=== PATIENT | male | born 1945 | race Caucasian/White ===

== ENCOUNTER 2018-10-04 09:17 | Inpatient (IN) | payer MEDICARE, OTHER, SELFPAY ==
[2018-10-04] VITALS (18 sets, daily range): BP systolic 142–231; BP diastolic 62–99; PULSE 57–89; RESP 13–21; TEMP 36.4–37.1; O2SAT 93–97; BMI 27.3; BMI 27.8; BMI 27.9
--- NOTE | 2018-10-04 09:23 | RAD_ITS ---
STUDY: X-RAY CHEST REASON FOR EXAM: Male, 72 years old. Cough TECHNIQUE: Single AP portable view of the chest. COMPARISON: 02/22/2016 FINDINGS: The lungs are clear and expanded. There is no demonstrated pleural abnormality. There is moderate cardiac enlargement. Normal mediastinum and pierre. Normal visualized pulmonary arteries. There is atherosclerotic tortuosity of the aortic arch and descending thoracic aorta. Normal visualized thoracic spine. Normal visualized ribs, clavicles, and shoulders. There is no demonstrated abnormality of the visualized soft tissue structures of the upper abdomen. RAD/Chest 1 View IMPRESSION: Stable chest moderate cardiomegaly tortuous aorta. No evidence of acute focal infiltrate. Electronically Signed: Maggy Hector MD at 10:42 EDT Tel , Service support ,
--- NOTE | 2018-10-04 09:23 | CT_ITS ---
We are attempting to reach Perez Walsh MD to discuss findings. An addendum with communication details will be sent when the communication is complete. STUDY: CTA OF THE BRAIN REASON FOR EXAM: Male, 72 years old. STROKE PROTOCOL. RADIATION DOSAGE (If Supplied By Facility): CTDIvol = ( 22.29 ) mGy, DLP = ( 757.70 ) mGycm TECHNIQUE: CT angiography was performed with a multi-detector CT scanner. Data acquisition was obtained from the skull base through the vertex following intravenous administration of Isovue 370 75ML IV. MIP images were reconstructed from the axial data set. Post-processing of the angiographic images was performed, with multiplanar reformation and 3D reconstruction. Individualized dose optimization techniques were used for this CT. COMPARISON: None. FINDINGS: Normal bilateral petrous carotid arteries. There is calcified plaque formation of the right cavernous carotid artery, without a cross-sectional luminal stenosis. There is calcified plaque formation of the left cavernous carotid artery, without a cross-sectional luminal stenosis. Normal right A1 segments of the anterior cerebral artery. Normal left A1 segments of the anterior cerebral artery. Normal intact anterior communicating artery (ACOM). Normal bilateral A2 segments of the anterior cerebral arteries. There is irregularity of the right M1 and M2 branches with minimal luminal narrowing, suggesting atherosclerotic plaque formation, without an occlusion. There is irregularity of the left M1 and M2 branches with minimal luminal narrowing, suggesting atherosclerotic plaque formation, without an occlusion. There is non-visualization of the right posterior communicating artery (PCOM). There is non-visualization of the left posterior communicating artery (PCOM). There is occlusion of the distal right vertebral artery. There is elongation with tortuosity and diffuse enlargement consistent with dolichoectasia. Atherosclerotic but patent bilateral posterior cerebral arteries. CT/CTA Head W/WO Contrast IMPRESSION: Occlusion of the right vertebral artery. Electronically Signed: Radha Hadley MD at 10:12 EDT Tel , Service support ,
--- NOTE | 2018-10-04 09:23 | CT_ITS ---
STUDY: CTA NECK WITH CONTRAST REASON FOR EXAM: Male, 72 years old. Right-sided symptoms. RADIATION DOSAGE (If Supplied By Facility): CTDIvol = ( ) mGy, DLP = ( ) mGycm TECHNIQUE: CT angiography with multi-detector data acquisition was performed from the aortic arch to the skull base following intravenous administration of Isovue 370 75ML IV. MIP images were reconstructed from the axial data set. Post-processing of the angiographic images was performed, with multiplanar reformation and 3D reconstruction. Individualized dose optimization techniques were used for this CT. COMPARISON: None. FINDINGS: AORTIC ARCH: Aortic arch is tortuous. Normal origins of the brachiocephalic, left common carotid, and left subclavian arteries. RIGHT CAROTID ARTERIES: Normal right common carotid artery (CCA). There is mild atherosclerotic plaque formation with minimal narrowing of the right carotid bulb. There is mild atherosclerotic plaque formation of the origin of the right internal carotid artery with less than 50% cross sectional diameter stenosis. There is atherosclerotic tortuous elongation of the cervical portion of the right internal carotid artery. There is mild atherosclerotic plaque formation of the origin of the right external carotid artery with less than 50% cross sectional diameter stenosis. LEFT CAROTID ARTERIES: Normal left common carotid artery (CCA). There is mild atherosclerotic plaque formation with minimal narrowing of the left carotid bulb. There is mild atherosclerotic plaque formation of the origin of the left internal carotid artery with less than 50% cross sectional diameter stenosis. There is atherosclerotic tortuous elongation of the cervical portion of the left internal carotid artery. Normal origin of the left external carotid artery (ECA). VERTEBRAL ARTERIES: The right vertebral artery is atretic throughout and not well-visualized until just inside the foramen magnum. The left side vertebral artery is dominant throughout and within the level of the foramen, becomes dolichoectatic. There is visualized degenerative change in the cervical spine. CT/CTA Neck W/WO Contrast IMPRESSION: Less than 50% stenosis of the bilateral internal carotid arteries. Dolichoectasia of the left-sided vertebral artery. Atretic right vertebral artery throughout the course until the foramen. N.B. : The above information has been verbally conveyed by Maggy Hector MD to MD Aleksey, on 10/04/2018 10:07:28 (ET). Electronically Signed: Mgagy Hector MD at 10:08 EDT Tel , Service support ,
--- NOTE | 2018-10-04 09:23 | CT_ITS ---
We are attempting to reach Perez Walsh MD to discuss findings. An addendum with communication details will be sent when the communication is complete. STUDY: CT BRAIN WITHOUT CONTRAST REASON FOR EXAM: Male, 72 years old. RADIATION DOSAGE (If Supplied By Facility): CTDIvol = ( 44.99 ) mGy, DLP = ( 829.85 ) mGycm TECHNIQUE: Transaxial CT imaging of the brain was performed without administration of intravenous contrast material. Individualized dose optimization techniques were used for this CT. COMPARISON: None. FINDINGS: There is a left-sided superficial frontal lipoma measuring 3.0 x 0.7 cm. Normal calvarium. There is a distended dolichoectatic appearance of the left-sided vertebral artery than the basilar artery. There is a fairly symmetric appearing mildly hyperdense appearance of the cerebral vessels. The tip of the basilar artery measures up to 7 mm. There is atherosclerotic disease of the cavernous carotid arteries. There is mild cerebral atrophy with widening of the extra-axial spaces and ventricular dilatation. There are areas of decreased attenuation within the white matter tracts of the supratentorial brain, consistent with microvascular disease changes. There is a small focus of left-sided external capsule/putamen low attenuation compatible with old lacunar infarct. Normal brainstem. There is mild cerebellar atrophy. There is no intracranial hemorrhage. There are no findings of an acute ischemic infarction. Normal visualized paranasal sinuses. CT/Brain/Head without Contrast IMPRESSION: There is dolichoectasia of the left vertebral artery extending far into the basilar artery to the tip of the basilar artery where there is a fusiform appearing distended vessel best seen on image #44 coronal views. The tip of the basilar artery measures up to 7 mm. Recommend consideration for follow-up CT angiogram of the brain for clarification of the vessels. Chronic appearing low attenuation in the periventricular white matter, small remote left external capsule lacunar infarct. Electronically Signed: Maggy Hector MD at 9:43 EDT Tel , Service support ,
--- NOTE | 2018-10-04 09:23 | EKG12_ITS ---
Test Reason : STROKE TEAM Blood Pressure : / mmHG Vent. Rate : 087 BPM Atrial Rate : 087 BPM P-R Int : 200 ms QRS Dur : 156 ms QT Int : 406 ms P-R-T Axes : 058 -32 -17 degrees QTc Int : 488 ms Normal sinus rhythm Left axis deviation Right bundle branch block T wave abnormality, consider lateral ischemia Abnormal ECG Confirmed by KELLY SANCHEZ, BIBIANA ([id number]), school photograph editor CARLOS REYES ([id number]) on 10/09/2018 9:25:29 AM Referred By: TIARRA Confirmed By:BIBIANA MENDOZA MD
--- NOTE | 2018-10-04 09:23 | NURSING ---
0910 STROKE ALERT CALLED 915 PATIENT ARRIVED 923 NEUROLOGY PAGED
--- NOTE | 2018-10-04 09:29 | ED.RN ---
PT IS NOT A GOOD HISTORIAN, UNSURE OF LKW.
--- NOTE | 2018-10-04 09:31 | ED.DCSUM_ITS ---
- ER Visit Summary Date of Service: 10/04/18 Chief Complaint: Stroke History of Present Illness: The patient is a 72 M arrives as an activated stroke team prehospital. Apparently patient woke up with the symptoms. He was up in the middle the night but does not recall what time. When he woke up he felt we ak and had problems getting out of bed he did not recognize his weakness right away and sustained a fall at about 830, about an hour ago. Paramedics noticed right facial droop arm and leg weakness. Patient tells me that he thinks he had those when he woke up. Denies headache vision changes speech difficulties memory impairment. No recent trauma. Physical Examination: Not appear in acute distress. Moist mucous membranes, no obvious facial deformity No C-spine tenderness supple neck. Regular rate and rhythm without any obvious murmurs Clear lungs bilaterally speaking in full sentences without any obvious respiratory distress Abdomen soft and nontender no guarding or rebound Skin does not show any obvious rashes or lesions, no trauma. NIH stroke scale is 6 feet template for details Emergency Department Course and Treatment: The patient's recollection, he woke up with the symptoms. Therefore he is not an IV TPA candidate. Blood pressure was 220 systolic, I will repeated if it is above 220 I will treat, however if it is below 220 oh will allow perfusion pressure. Because the patient with stroke neurologist, Dr. Mattson. CT angiogram showed a right vertebral artery stenosis, however this is likely not acute his symptoms do not correlate. I discussed the patient with neurology again he will be admitted to our facility. Antiplatelet therapy was given. Impression: Acute stroke Critical care time 35 minutes This note was generated with [employer] dictation software. It may contain incorrect words, spelling, and punctuation that were not noted in review of the chart prior to signing
[2018-10-04 09:32] LABS: Absolute Neutrophil Count 8.3 X10^3/uL (2.0-7.7); Basophil# 0.04 X10^3/uL; Basophil% 0.4 % (0-1); Eosinophil# 0.09 X10^3/uL; Eosinophils% 0.8 % (0-5); Hematocrit 48.6 % (40-54); Hemoglobin 16.8 g/dl (13.0-16.5); Lymphocyte % 17.1 % (19-41); Mean Corp Hgb Conc 34.6 g/gl (32-36); Mean Corpuscular Hgb 31.4 pg (27.0-32.0); Mean Corpuscular Volume 90.8 fL (80-94); Mean Platelet Vol. 10.7 fl (6.2-12.0); Monocyte% 6.3 % (0-10); Neutrophil # 8.25 X10^3/uL (2.7-7.7); Neutrophil % 74.4 % (47-70); POSITIVE COUNT NO; POSITIVE DIFFERENTIAL NO; POSITIVE MORPHOLOGY NO; Platelet Count 187 K/mm3 (150-450); RBC Distribution Width SD 42.8 fl (35.1-43.9); Red Blood Count 5.35 M/mm3 (4.6-6.2); White Blood Count 11.1 K/mm3 (4.4-11.0)
[2018-10-04 09:39] LABS: Prothrombin Time (Protime)PT. 13.2 SECONDS (11.7-14.9)
[2018-10-04 09:40] LABS: Partial Thromboplast Time 27.3 Seconds (24.1-36.2)
--- NOTE | 2018-10-04 09:47 | ED.RN ---
PT IS A PT ON TCU.
[2018-10-04] MEDS: 0.9% Normal Saline 1,000 ML 100 ML IV (09:52)
[2018-10-04 09:56] LABS: Anion Gap 7 (5-15); BUN 11 mg/dL (7-18); BUN/Creat Ratio 13.1 RATIO (10-20); Chloride 98 mmol/L (98-107); Creatinine, Serum 0.84 mg/dL (0.70-1.30); EST Glomerular Filtration Rate 96 mL/min (>60); Est Glom Filt Rate - Afr Amer 116 mL/min (>60); Estimated Creatinine Clearance 83.28 ml/min; Glucose 117 mg/dL (74-106); Sodium Level 131 mmol/L (136-145)
--- NOTE | 2018-10-04 10:00 | ED.RN ---
CALLED PHARM FOR TRANDATE
--- NOTE | 2018-10-04 10:21 | NURSING ---
CALLED [facility] FOR TRANSFER.
--- NOTE | 2018-10-04 11:04 | HP.PCM_ITS ---
History of Present Illness Date of Admission: 10/04/18 Chief Complaint: right facial droop The patient is a 72 year old M with a PMH of hypertension. He was admitted with a complaint of right-sided facial droop and right-sided weakness. Patient's last known well was last night when he went to bed. He could not give an exact time of last known well. However he says during the night he woke up to arrange his sheets over himself and felt well. He woke up this morning and tried getting out of bed but was noticed that his right side was slightly weak. He also noticed that he had a right facial droop and so he decided coming to the ED. He denied any blurred vision, chest pain, palpitations, dizziness, abdominal pain, diarrhea vomiting. He is never had a stroke before. The ED, vitals were significant for markedly elevated blood pressure of 221/97. Chemistry was significant for sodium of 131 and troponin were negative. CBC showed white cell count of 11.1. Brain CT showed dolichoectasia of the left vertebral artery extending into basilar artery and chronic appearing low attenuation in the periventricular white matter with a small remote left external capsule lacunar infarct. CT angiography of the head showed occlusion of the distal right vertebral artery and irregularity of the M1 and M2 branches with minimal luminal narrowing suggesting atherosclerotic plaque formation without an occlusion. CT angiogram of the neck showed less than 50% stenosis of the bilateral internal carotid arteries. He is been admitted for stroke workup. [] Past Medical History Allergies No Known Allergies Allergy (Verified 10/04/18 09:33) Home Medications: Ambulatory Orders Medication Instructions Recorded Aspirin [Aspirin, Baby] 81 mg PO DAILY@0800 02/22/16 Amlodipine [Norvasc] 5 mg PO DAILY #30 tablet 02/23/16 Lisinopril [Zestril] 10 mg PO DAILY #30 tablet 02/23/16 Pantoprazole Sodium [Protonix] 20 mg PO DAILY #30 tablet 02/23/16 Surgical History: - - bilateral cataract surgery, bilateral corneal transplant. Psychiatric History: No pertinent psych hx Lives: Spouse/ Significant Other Smoking Status: Never smoker Alcohol: None Drugs: None - *Family History Maternal History Items: No pertinent history Review of Systems Constitutional: Denies: Chills, Fever, Night Sweats, Malaise, Weight Change Eyes: Denies: Blurred vision, Double vision, Vision Change HEENT: Denies: Difficulty Hearing, Difficulty Swallowing, Head Aches, Sinus Congestion, Sinus Drainage Cardiovascular: Denies: Chest Pain, Palpitations Respiratory: Denies: Cough, Shortness of Breath, Shortness of breath at rest, Shortness of breath upon exertion, Sputum production, Wheezing Gastrointestinal: Denies: Abdominal Pain, Nausea, Vomiting Genitourinary: Denies: Dysuria Musculoskeletal: Denies: Joint Pain, Joint Tenderness Skin: Denies: Rash, Wounds Neurological: Reports: - - right facial droop, right sided weakness. Denies: Balance problems, Blurred vision, Double vision, Change in Speech, Slurred speech, Confusion, Difficulty swallowing, Focal weakness, Headaches, Incoordination, Numbness, Tingling, Tremor, Seizures Psychiatric: Denies: Anxiety, Depression, Homicidal Ideations, Suicidal Ideations Hematologic/ Lymphatic: Denies: Easy Bruising, Easy Bleeding VTE Information - Inpt Only VTE Present on Admission: No VTE Pharm Prophylaxis ordered?: Yes - Physical Exam General: Alert, Oriented x3, Cooperative, No apparent distress HEENT: Atraumatic, PERRLA, EOMI, Normocephalic Oral: Moist Mucosa Neck: Supple, No JVD, Negative Carotid Bruits Lungs: Clear to auscultation, Normal air movement, No rhonchi, No wheeze, No rales Cardiovascular: Regular rate, Regular Rhythm, Normal S1, Normal S2, - - grade 2- 3 systolic murmur loudest in the aortic and pulmonary valve areas Abdomen: Bowel Sounds Present, Soft, Non Tender Extremities: No clubbing, No cyanosis, No edema, Capillary Refill Less than 3 Seconds Skin: No rashes, No breakdown Musculoskeletal: No Tenderness to Palpation of Joints or Extremities Lymphatic: No Cervical, Supraclavicular, or Inguinal Adenopathy Neurological: Cranial nerves II-XII grossly intact, Facial Droop, Muscle tone normal, Sensory exam intact to light touch and pain, - - right facial droop, involving only lower part of face. Power in RUE is 4-/5; power in RLE was 4/5. NIHSS- 7. Speech also mildly slurred. Psych/Mental Status: Normal Affect, Appropriate, Alert and oriented to time, place, person, mood and affect Vital Signs Temp Pulse Resp BP Pulse Ox 98.1 F 71 18 142/88 H 95 10/04/18 09:18 10/04/18 10:30 10/04/18 10:30 10/04/18 10:30 10/04/18 10:30 Oxygen Flow Rate (L/min) 1 Oxygen Delivery Method Nasal Cannula Weight: 190 lb 4.143 oz Body Mass Index (BMI) 27.3 Finger Stick Blood Glucose 123 Laboratory Tests Past 24 Hrs 10/04/18 10/04/18 10/04/18 09:23 09:23 09:23 WBC 11.1 H RBC 5.35 Hgb 16.8 H Hct 48.6 MCV 90.8 MCH 31.4 MCHC 34.6 RDW 13.0 RDW Differential 42.8 Plt Count 187 MPV 10.7 Immature Gran % (Auto) 1.000 H Neut % (Auto) 74.4 H Lymph % (Auto) 17.1 L [place] % (Auto) 6.3 Eos % (Auto) 0.8 Baso % (Auto) 0.4 Absolute Neuts (auto) 8.3 H Absolute Lymphs (auto) 1.90 Total Counted Not Reportable PT 13.2 INR 1.0 APTT 27.3 Sodium 131 L Potassium 5.0 Chloride 98 Carbon Dioxide 26.0 Anion Gap 7 BUN 11 Creatinine 0.84 Estim Creat Clear Calc 83.28 Est GFR (MDRD) Af Amer 116 Est GFR (MDRD) Non-Af 96 BUN/Creatinine Ratio 13.1 Glucose 117 H Calcium 9.0 Troponin I 0.[address] 10/04/18 09:23 IMPRESSION: There is dolichoectasia of the left vertebral artery extending far into the basilar artery to the tip of the basilar artery where there is a fusiform appearing distended vessel best seen on image #44 coronal views. The tip of the basilar artery measures up to 7 mm. Recommend consideration for follow-up CT angiogram of the brain for clarification of the vessels. Chronic appearing low attenuation in the periventricular white matter, small remote left external capsule lacunar infarct. 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 The tip of the basilar artery measures up to 7 mm. Recommend consideration for follow-up CT angiogram of the brain for clarification of the vessels. Chronic appearing low attenuation in the periventricular white matter, small remote left external capsule lacunar infarct. N.B. : The above information has been verbally conveyed by Maggy Hector MD to Dr. Jillian MD, on 10/04/2018 09:48:58 (ET). Electronically Signed: Maggy Hector MD at 9:43 EDT Tel , Service support , Chest X-Ray 10/04/18 09:23 IMPRESSION: Stable chest moderate cardiomegaly tortuous aorta. No evidence of acute focal infiltrate. Electronically Signed: Maggy Hector MD at 10:42 EDT Tel , Service support , Head CTA 10/04/18 09:23 IMPRESSION: Occlusion of the right vertebral artery. Electronically Signed: Radha Hadley MD at 10:12 EDT Tel , Service support , ADDENDUM: 10/04/18 1022 IMPRESSION: Occlusion of the right vertebral artery. N.B. : The above information has been verbally conveyed by Radha Hadley MD to Perez Walsh MD, on 10/04/2018 10:14:31 (ET). Electronically Signed: Radha Hadley MD at 10:12 EDT Tel , Service support , Neck CTA 10/04/18 09:23 IMPRESSION: Less than 50% stenosis of the bilateral internal carotid arteries. Dolichoectasia of the left-sided vertebral artery. Atretic right vertebral artery throughout the course until the foramen. N.B. : The above information has been verbally conveyed by Maggy Hector MD to MD Aleksey, on 10/04/2018 10:07:28 (ET). Electronically Signed: Maggy Hector MD at 10:08 EDT Tel , Service support , ADDENDUM: 10/04/18 1015 IMPRESSION: Less than 50% stenosis of the bilateral internal carotid arteries. Dolichoectasia of the left-sided vertebral artery. Atretic right vertebral artery throughout the course until the foramen. N.B. : The above information has been verbally conveyed by Maggy Hector MD to MD Aleksey, on 10/04/2018 10:07:28 (ET). Electronically Signed: Maggy Hector MD at 10:08 EDT Tel , Service support , ADDENDUM: 10/04/18 1038 Assessment/Plan 72 y/o admitted with a complaint of right facial droop 1. CVA, likely ischemia * NIHSS is 7 * Was out of window for TPA as patient woke up with symptoms and cannot see except time of last known well. * Brain CT showed dolichoectasia of the left vertebral artery extending into basilar artery and chronic appearing low attenuation in the periventricular white matter with a small remote left external capsule lacunar infarct. CT angiography of the head showed occlusion of the distal right vertebral artery and irregularity of the M1 and M2 branches with minimal luminal narrowing suggesting atherosclerotic plaque formation without an occlusion. * CT angiogram of the neck showed less than 50% stenosis of the bilateral internal carotid arteries. * admit to PCU with telemetry * hold BP meds to allow for permissive hypertension; IV labetalol prn for BP>220/120 * give aspirin 81mg daily. Per ED doctor's discussion with neurology, to hold off on plavix for now until after MRI * PT/OT consulted * keep NPO until patient has swallow evaluation * Will check lipid panel and A1c. * neurology consulted * 2. Hyponatremia: Sodium is 131. This is chronic extending back to 2016. Will monitor.\ 3. Hypertension: On amlodipine and lisinopril. Will hold these to allow for permissive hypertension. DVT prophylaxis: SCDs, until MRI rules out any bleed. Code Visit Inpatient E&M: 48782 Init Hosp L3
--- NOTE | 2018-10-04 11:11 | NURSING ---
DR CHRISTINA MAYEN
--- NOTE | 2018-10-04 11:12 | NURSING ---
PCU STROKE KOR
--- NOTE | 2018-10-04 11:18 | NURSING ---
DR VASQUEZ IN ROOM
[2018-10-04] MEDS: Aspirin E.C. 325 MG Tablet PO (11:27)
--- NOTE | 2018-10-04 11:44 | CM.ED ---
Social Work Note Face to face with pt and pt's , Destiny. Introduced self and role at [facility]. Pt is alert and oriented, but states that he is tired and defers most questions to his . Per Destiny, she and the pt live in a two-story home with 2 NEENA and a handrail on the left hand side. Reports that they do have to use a flight of stairs for laundry and the pt's office is in the basement. Pt ambulated without DME prior to today's presentation. At this time pt has not been ambulated to see if DME is required. Anticipates discharge home, but would consider TCU if recommended once PT/OT evaluations are completed. Destiny is presently a pt in TCU. PCP is Dr. Aman Lockwood at [facility], and pt denies establishment with any specialists. Preferred pharmacy is [facility] in [place]. Pt does not have advanced directives. Declines education at this time, but does accept HCPOA and Living Will packet and is made aware that SWs are available to assist if he chooses to complete documents while hospitalized or afterwards. Understanding expressed, and no further needs identified at this time. RN CM and SW on assigned unit to continue to evaluate and assist with discharge planning. Lena Key, PROCESS DEVELOPMENT CHEMIST, CAKE CUTTER MACHINE
--- NOTE | 2018-10-04 12:00 | NURSING ---
completed w/ED RN
[2018-10-04 17:32] LABS: Hemoglobin A1c 5.5 % (4.2-6.3)
--- NOTE | 2018-10-04 19:31 | NURSING ---
w/night GIO Arteaga RN
[2018-10-04] MEDS: Atorvastatin Calcium 80 MG Tablet PO (23:49)
[2018-10-05] VITALS (17 sets, daily range): BP systolic 134–197; BP diastolic 57–81; PULSE 56–82; RESP 12–16; TEMP 36.4–37.1; O2SAT 93–97; BMI 27.8
[2018-10-05 06:17] LABS: Absolute Lymphocyte Count 1.87 X10^3/ul (0.83-4.51); Absolute Neutrophil Count 7.7 X10^3/uL (2.0-7.7); Basophil# 0.02 X10^3/uL; Basophil% 0.2 % (0-1); Eosinophil# 0.16 X10^3/uL; Eosinophils% 1.5 % (0-5); Hematocrit 45.5 % (40-54); Hemoglobin 15.6 g/dl (13.0-16.5); Lymphocyte # 1.87 X10^3/ul (4.0); Lymphocyte % 17.4 % (19-41); Mean Corp Hgb Conc 34.3 g/gl (32-36); Mean Corpuscular Hgb 31.6 pg (27.0-32.0); Mean Corpuscular Volume 92.3 fL (80-94); Mean Platelet Vol. 10.4 fl (6.2-12.0); Monocyte# 0.95 X10^3/uL; Monocyte% 8.8 % (0-10); Neutrophil # 7.65 X10^3/uL (2.7-7.7); Platelet Count 186 K/mm3 (150-450); RBC Distribution Width CV 13.1 % (11.6-14.6); RBC Distribution Width SD 43.2 fl (35.1-43.9); Red Blood Count 4.93 M/mm3 (4.6-6.2); White Blood Count 10.8 K/mm3 (4.4-11.0)
[2018-10-05 06:31] LABS: POSITIVE COUNT NO; POSITIVE DIFFERENTIAL NO; POSITIVE MORPHOLOGY NO
[2018-10-05 06:33] LABS: Anion Gap 10 (5-15); BUN 14 mg/dL (7-18); BUN/Creat Ratio 17.8 RATIO (10-20); Calcium,Total 8.5 mg/dL (8.5-10.1); Chloride 101 mmol/L (98-107); Cholesterol 202 mg/dL (200); Creatinine, Serum 0.79 mg/dL (0.70-1.30); EST Glomerular Filtration Rate 103 mL/min (>60); Est Glom Filt Rate - Afr Amer 125 mL/min (>60); Estimated Creatinine Clearance 61.14 ml/min; Glucose 92 mg/dL (74-106); High Density Lipoprotein 41 mg/dL; Potassium 3.9 mmol/L (3.5-5.1); Sodium Level 137 mmol/L (136-145); Triglycerides 112 mg/dL; Very Low Density Lipoprotein 22 mg/dL (5-40)
--- NOTE | 2018-10-05 07:15 | MRI_ITS ---
STUDY: MRI BRAIN WITHOUT CONTRAST REASON FOR EXAM: Male, 72 years old. Right-sided facial droop and right-sided weakness. Sudden onset of aphasia yesterday. TECHNIQUE: Standardized multiplanar fat and water weighted pulse sequences were obtained. COMPARISON: CT of the head dated October 04, 2018. FINDINGS: There is mild cerebral atrophy with widening of the extra-axial spaces and ventricular dilatation. There are multiple white matter hyperintensities, distributed throughout the deep white matter tracts of the cerebral hemispheres, consistent with moderate chronic white matter ischemic changes. There is confluent periventricular hyperintensity cloaking the lateral ventricles, consistent with periventricular leukoaraiosis. There appear to be small areas of restricted diffusion within bilateral basal ganglia. This is best seen on MR #501, image # 15. There also appears to be a paramedian areas of restricted diffusion within the lise that may be the result of acute ischemia versus artifact. This is best seen on MR #501 image #8. Acute infarcts cannot be completely excluded. Normal T2* images of the brain without demonstrated susceptibility artifact. There is no demonstrated hemosiderin stain. Normal bilateral basal ganglia. Normal thalami. There is no extra-axial fluid accumulation. Normal flow voids within the major intracranial circulation suggesting patency by spin echo criteria. Normal sella turcica, pituitary gland, infundibular stalk, optic chiasm and hypothalamus. Normal tectal plate and pineal gland. Normal midbrain, lise and medulla. Normal cerebellum. There are large basal cisterns. Normal bilateral temporal bones. Normal bilateral internal auditory canals. There are bilateral ocular lens implants with otherwise normal intraorbital contents. There appears to be also complete opacification of right maxillary sinus. This may be related to fluid or large mucous retention cyst. There is mild mucoperiosteal thickening in the left maxillary sinus. Normal calvarium and skull base. Normal visualized soft tissue structures. Normal visualized upper cervical spine. MRI/Brain without Contrast IMPRESSION: 1. Involutional changes of the brain, as described above. 2. Questionable areas of restricted diffusion within the basal ganglia and lise as described. Acute infarcts cannot be excluded in these areas but certainly these findings could be artifactual. 3. Paranasal sinus disease, as described. Electronically Signed: Livia Lyons MD at 10:02 EDT , Service support ,
--- NOTE | 2018-10-05 08:00 | ECHOD_ITS ---
Reason For Study: TIA/CVA Procedure This was a 2D Doppler, Color Flow transthoracic echocardiogram. Exam performed portable in patient room. Left Ventricle Normal LV size. Severe concentric left ventricular hypertrophy. Left ventricular systolic function is normal. The estimated ejection fraction is 65 %. Stage 1 diastolic dysfunction. No regional wall motion abnormalities noted. Right Ventricle Normal RV size. Normal systolic function. Atria Normal left atrium. Normal right atrium. Bubble contrast study negative for right to left interatrial shunt. Mitral Valve Normal mitral valve. Tricuspid Valve Normal tricuspid valve. Mild to moderate (1-2+) tricuspid valve insufficiency. Pulmonary artery systolic pressure is 38 mmHg. Aortic Valve Trisinus/trileaflet aortic valve. Mild focal aortic valve calcification. Mild-Moderate (1-2+) eccentric aortic valve insufficiency. Pulmonic Valve Normal pulmonic valve. Great Vessels Normal aortic root. The pulmonary artery is normal size. Normal inferior vena cava. Pericardium/Pleural No pericardial effusion. Medication Performed a rapid injection of agitated mix of 9 cc saline and 1cc air to assess for atrial septal defect. MMode/2D Measurements & Calculations LVIDd: 5.3 cm IVSd: 1.6 cm LVOT diam: 2.3 cm LVIDs: 2.8 cm LVPWd: 1.6 cm RVDd: 3.7 cm FS: 46.7 % LVOT area: 4.3 cm2 Ao root diam: 3.1 cm LAV(MOD-bp): 49.6 ml LVAd ap4: 34.9 cm2 LAV(MOD-bp) Indexed: 26.1 ml/m2 EDV(MOD-sp4): 117.5 ml LAV(MOD-sp2): 49.5 ml EDV(sp4-el): 115.7 ml LAV(MOD-sp4): 46.3 ml LVAs ap4: 15.8 cm2 ESV(MOD-sp4): 27.9 ml ESV(sp4-el): 26.8 ml EF(MOD-sp4): 76.3 % EF(sp4-el): 76.8 % SV(MOD-sp4): 89.6 ml SV(sp4-el): 88.9 ml LA A4 area: 17.9 cm2 LA dimension(2D): 3.9 cm RA A4 area: 11.8 cm2 Doppler Measurements & Calculations MV E max maykel: 57.1 cm/sec Lat Peak E' Maykel: 6.1 cm/sec Med Peak E' Maykel: 6.5 cm/sec MV A max maykel: 103.3 cm/sec E/E' lat: 9.3 E/E' med: 8.8 MV E/A: 0.55 Ao V2 max: 286.8 cm/sec LV V1 max: 172.5 cm/sec SV(LVOT): 154.7 ml Ao max P.9 mmHg LV V1 max P.9 mmHg Ao V2 mean: 169.4 cm/sec LV V1 mean P.4 mmHg Ao mean P.7 mmHg LV V1 mean: 119.2 cm/sec Ao V2 VTI: 47.0 cm LV V1 VTI: 36.0 cm JAYME(I,D): 3.3 cm2 JAYME(V,D): 2.6 cm2 PA V2 max: 172.6 cm/sec PI end-d maykel: 123.3 cm/sec TR max maykel: 294.3 cm/sec PA V2 mean: 115.9 cm/sec TR max P.6 mmHg PA V2 VTI: 32.4 cm Interpretation Summary Normal LV size. Severe concentric left ventricular hypertrophy. Left ventricular systolic function is normal. The estimated ejection fraction is 65 %. Stage 1 diastolic dysfunction. Mild-Moderate (1-2+) eccentric aortic valve insufficiency. Ordering Physician: Paulina Eastman Referring Physician: Aman Lockwood Performed By: Cornelia Moran, WILSON, RVT
[2018-10-05] MEDS: Aspirin 81 MG TAB.CHEW PO (09:44)
--- NOTE | 2018-10-05 11:19 | PCM.PN.HOSP ---
Patient Problems: Active and Suspected Problems Stroke (Acute) Subjective: Patient seen and examined. He was admitted yesterday with right-sided weakness and facial droop due to a CVA. He has no complaints this morning and feels much better. Right-sided weakness has improved markedly and right facial droop is also improved. Review of systems otherwise negative. Labs and vitals reviewed. Neurology on board. Vitals/I&O's: Vital Signs Temp Pulse Resp BP Pulse Ox 98.0 F 60 14 197/66 H 94 10/05/18 09:27 10/05/18 09:27 10/05/18 09:27 10/05/18 09:27 10/05/18 09:53 Oxygen Flow Rate (L/min) 1 Oxygen Delivery Method Room Air Weight: 177 lb 11.081 oz Body Mass Index (BMI) 27.8 Finger Stick Blood Glucose 123 Intake and Output for Last 24 Hours 10/03/18 10/04/18 10/05/18 22:59 23:59 23:59 Intake Total 50 / 50 Output Total 200 / 200 Balance -150 / -150 General: Alert, Oriented x3, Cooperative, No apparent distress HEENT: Atraumatic, PERRLA, EOMI, Normocephalic Oral: Moist Mucosa Neck: Supple, No JVD, Negative Carotid Bruits Lungs: Clear to auscultation, Normal air movement, No rhonchi, No wheeze, No rales Cardiovascular: Regular rate, Regular Rhythm, Normal S1, Normal S2, No murmurs Abdomen: Bowel Sounds Present, Soft, Non Tender, Non-Distended, No Hepato-splenomegaly Extremities: No clubbing, No cyanosis, No edema, Capillary Refill Less than 3 Seconds Skin: No rashes, No breakdown Musculoskeletal: No Tenderness to Palpation of Joints or Extremities Lymphatic: No Cervical, Supraclavicular, or Inguinal Adenopathy Neurological: - - still has mild right facial droop, but it is much improved. Power in RUE and RLE is 4+/5 Psych/Mental Status: Normal Affect, Appropriate, Alert and oriented to time, place, person, mood and affect Laboratory Results 10/04/18 12:25: Troponin I 0.036 10/04/18 16:53: Hemoglobin A1c 5.5 10/05/18 05:35: Sodium 137, Potassium 3.9, Chloride 101, Carbon Dioxide 26.0, Anion Gap 10, BUN 14, Creatinine 0.79, Estim Creat Clear Calc 61.14, Est GFR (MDRD) Af Amer 125, Est GFR (MDRD) Non-Af 103, BUN/Creatinine Ratio 17.8, Glucose 92, Calcium 8.5, Triglycerides 112, Cholesterol 202 H, LDL Cholesterol 139 H, VLDL Cholesterol 22, HDL Cholesterol 41 10/05/18 05:35: WBC 10.8, RBC 4.93, Hgb 15.6, Hct 45.5, MCV 92.3, MCH 31.6, MCHC 34.3, RDW 13.1, RDW Differential 43.2, Plt Count 186, MPV 10.4, Immature Gran % (Auto) 1.100 H, Neut % (Auto) 71.0 H, Lymph % (Auto) 17.4 L, [place] % (Auto) 8.8, Eos % (Auto) 1.5, Baso % (Auto) 0.2, Absolute Neuts (auto) 7.7, Absolute Lymphs (auto) 1.87, Total Counted Not Reportable Diagnostic Data Brain CT 10/04/18 09:23 IMPRESSION: There is dolichoectasia of the left vertebral artery extending far into the basilar artery to the tip of the basilar artery where there is a fusiform appearing distended vessel best seen on image #44 coronal views. The tip of the basilar artery measures up to 7 mm. Recommend consideration for follow-up CT angiogram of the brain for clarification of the vessels. Chronic appearing low attenuation in the periventricular white matter, small remote left external capsule lacunar infarct. Electronically Signed: Maggy Hector MD at 9:43 EDT Tel , Service support , ADDENDUM: 10/04/18 0855 IMPRESSION: There is dolichoectasia of the left vertebral artery extending far into the basilar artery to the tip of the basilar artery where there is a fusiform appearing distended vessel best seen on image #44 coronal views. The tip of the basilar artery measures up to 7 mm. Recommend consideration for follow-up CT angiogram of the brain for clarification of the vessels. Chronic appearing low attenuation in the periventricular white matter, small remote left external capsule lacunar infarct. N.B. : The above information has been verbally conveyed by Maggy Hector MD to Dr. Jillian MD, on 10/04/2018 09:48:58 (ET). Electronically Signed: Maggy Hector MD at 9:43 EDT Tel , Service support , Chest X-Ray 10/04/18 09:23 IMPRESSION: Stable chest moderate cardiomegaly tortuous aorta. No evidence of acute focal infiltrate. Electronically Signed: Maggy Hector MD at 10:42 EDT Tel , Service support , Head CTA 10/04/18 09:23 IMPRESSION: Occlusion of the right vertebral artery. Electronically Signed: Radha Hadley MD at 10:12 EDT Tel , Service support , ADDENDUM: 10/04/18 1022 IMPRESSION: Occlusion of the right vertebral artery. N.B. : The above information has been verbally conveyed by Radha Hadley MD to Perez Walsh MD, on 10/04/2018 10:14:31 (ET). Electronically Signed: Radha Hadley MD at 10:12 EDT Tel , Service support , Neck CTA 10/04/18 09:23 IMPRESSION: Less than 50% stenosis of the bilateral internal carotid arteries. Dolichoectasia of the left-sided vertebral artery. Atretic right vertebral artery throughout the course until the foramen. N.B. : The above information has been verbally conveyed by Maggy Hector MD to MD Aleksey, on 10/04/2018 10:07:28 (ET). Electronically Signed: Maggy Hector MD at 10:08 EDT Tel , Service support , ADDENDUM: 10/04/18 1015 IMPRESSION: Less than 50% stenosis of the bilateral internal carotid arteries. Dolichoectasia of the left-sided vertebral artery. Atretic right vertebral artery throughout the course until the foramen. N.B. : The above information has been verbally conveyed by Maggy Hector MD to MD Aleksey, on 10/04/2018 10:07:28 (ET). Electronically Signed: Maggy Hector MD at 10:08 EDT Tel , Service support , ADDENDUM: 10/04/18 1038 Brain MRI 10/05/18 07:15 IMPRESSION: 1. Involutional changes of the brain, as described above. 2. Questionable areas of restricted diffusion within the basal ganglia and lise as described. Acute infarcts cannot be excluded in these areas but certainly these findings could be artifactual. 3. Paranasal sinus disease, as described. Electronically Signed: Livia Lyons MD at 10:02 EDT , Service support , Current Medications Amlodipine Besylate (Norvasc) 5 mg PO DAILY [facility] Aspirin (Aspirin, Baby) 81 mg PO DAILY@0800 [facility] Last Admin: 10/05/18 09:44 Dose: 81 mg Atorvastatin Calcium (Lipitor) 80 mg PO QHS [facility] Last Admin: 10/04/18 23:49 Dose: 80 mg Labetalol HCl (Trandate) 10 mg IV Q4H PRN PRN PRN Reason: BLOOD PRESSURE >220/120 Lisinopril (Zestril) 10 mg PO DAILY [facility] Magnesium Hydroxide (Milk Of Magnesia) 30 ml PO DAILY PRN PRN PRN Reason: Constipation Pantoprazole Sodium (Protonix) 20 mg PO DAILY [facility] Medical Necessity - Tobacco Use Smoking Status: Never smoker Assessment/Plan All Active Problems Stroke (Acute) 72 y/o admitted with a complaint of right facial droop 1. CVA, likely ischemic NIHSS was 7 on admission, now down to 2 didnt receive TPA as he was out of window for it Brain CT showed dolichoectasia of the left vertebral artery extending into basilar artery and chronic appearing low attenuation in the periventricular white matter with a small remote left external capsule lacunar infarct. CT angiography of the head showed occlusion of the distal right vertebral artery and irregularity of the M1 and M2 branches with minimal luminal narrowing suggesting atherosclerotic plaque formation without an occlusion. CT angiogram of the neck showed less than 50% stenosis of the bilateral internal carotid arteries. MRI this morning showed involutional changes of the brain and questionable areas of restricted diffusion within the basal ganglia and lise as described. MRI reviewed with neurologist who thinks there is an infarct in the left internal capsule. will resume BP meds today continue on aspirin 81mg daily and add on plavix 75mg daily PT.OT on board A1C was 5.5 Lipid panel showed cholesterol of 202 and LDL of 139 with HDL of 41. Currently on high intensity statin. neurology on board. for placement of 30 day monitor tomorrow 2. Hyponatremia: Resolved. Sodium up to 137 today. 3. Hypertension: On amlodipine and lisinopril. BP missed today with goal BP less than 130/80. DVT prophylaxis: heparin Disposition: for discharge home tomorrow after Holter monitor placement. Code Visit Inpatient E&M: 99885 [facility] L3
--- NOTE | 2018-10-05 11:25 | PN_ITS ---
Patient Problems: Active and Suspected Problems Stroke (Acute) Subjective: Patient seen and examined. He was admitted yesterday with right-sided weakness and facial droop due to a CVA. He has no complaints this morning and feels much better. Right-sided weakness has improved markedly and right facial droop is also improved. Review of systems otherwise negative. Labs and vitals reviewed. Neurology on board. Vitals/I&O's: Vital Signs Temp Pulse Resp BP Pulse Ox 98.0 F 60 14 197/66 H 94 10/05/18 09:27 10/05/18 09:27 10/05/18 09:27 10/05/18 09:27 10/05/18 09:53 Oxygen Flow Rate (L/min) 1 Oxygen Delivery Method Room Air Weight: 177 lb 11.081 oz Body Mass Index (BMI) 27.8 Finger Stick Blood Glucose 123 Intake and Output for Last 24 Hours 10/03/18 10/04/18 10/05/18 22:59 23:59 23:59 Intake Total 50 / 50 Output Total 200 / 200 Balance -150 / -150 General: Alert, Oriented x3, Cooperative, No apparent distress HEENT: Atraumatic, PERRLA, EOMI, Normocephalic Oral: Moist Mucosa Neck: Supple, No JVD, Negative Carotid Bruits Lungs: Clear to auscultation, Normal air movement, No rhonchi, No wheeze, No rales Cardiovascular: Regular rate, Regular Rhythm, Normal S1, Normal S2, No murmurs Abdomen: Bowel Sounds Present, Soft, Non Tender, Non-Distended, No Hepato- splenomegaly Extremities: No clubbing, No cyanosis, No edema, Capillary Refill Less than 3 Seconds Skin: No rashes, No breakdown Musculoskeletal: No Tenderness to Palpation of Joints or Extremities Lymphatic: No Cervical, Supraclavicular, or Inguinal Adenopathy Neurological: - - still has mild right facial droop, but it is much improved. Power in RUE and RLE is 4+/5 Psych/Mental Status: Normal Affect, Appropriate, Alert and oriented to time, place, person, mood and affect Laboratory Results 10/04/18 12:25: Troponin I 0.036 10/04/18 16:53: Hemoglobin A1c 5.5 10/05/18 05:35: Sodium 137, Potassium 3.9, Chloride 101, Carbon Dioxide 26.0, Anion Gap 10, BUN 14, Creatinine 0.79, Estim Creat Clear Calc 61.14, Est GFR (MDRD) Af Amer 125, Est GFR (MDRD) Non-Af 103, BUN/Creatinine Ratio 17.8, Glucose 92, Calcium 8.5, Triglycerides 112, Cholesterol 202 H, LDL Cholesterol 139 H, VLDL Cholesterol 22, HDL Cholesterol 41 10/05/18 05:35: WBC 10.8, RBC 4.93, Hgb 15.6, Hct 45.5, MCV 92.3, MCH 31.6, MCHC 34.3, RDW 13.1, RDW Differential 43.2, Plt Count 186, MPV 10.4, Immature Gran % (Auto) 1.100 H, Neut % (Auto) 71.0 H, Lymph % (Auto) 17.4 L, [place] % (Auto) 8.8, Eos % (Auto) 1.5, Baso % (Auto) 0.2, Absolute Neuts (auto) 7.7, Absolute Lymphs (auto) 1.87, Total Counted Not Reportable Diagnostic Data Brain CT 10/04/18 09:23 IMPRESSION: There is dolichoectasia of the left vertebral artery extending far into the basilar artery to the tip of the basilar artery where there is a fusiform appearing distended vessel best seen on image #44 coronal views. The tip of the basilar artery measures up to 7 mm. Recommend consideration for follow-up CT angiogram of the brain for clarification of the vessels. Chronic appearing low attenuation in the periventricular white matter, small remote left external capsule lacunar infarct. Electronically Signed: Maggy Hector MD at 9:43 EDT Tel , Service support , ADDENDUM: 10/04/18 5555 IMPRESSION: There is dolichoectasia of the left vertebral artery extending far into the basilar artery to the tip of the basilar artery where there is a fusiform appearing distended vessel best seen on image #44 coronal views. The tip of the basilar artery measures up to 7 mm. Recommend consideration for follow-up CT angiogram of the brain for clarification of the vessels. Chronic appearing low attenuation in the periventricular white matter, small remote left external capsule lacunar infarct. N.B. : The above information has been verbally conveyed by Maggy Hector MD to Dr. Jillian MD, on 10/04/2018 09:48:58 (ET). Electronically Signed: Maggy Hector MD at 9:43 EDT Tel , Service support , Chest X-Ray 10/04/18 09:23 IMPRESSION: Stable chest moderate cardiomegaly tortuous aorta. No evidence of acute focal infiltrate. Electronically Signed: Maggy Hector MD at 10:42 EDT Tel , Service support , Head CTA 10/04/18 09:23 IMPRESSION: Occlusion of the right vertebral artery. Electronically Signed: Radha Hadley MD at 10:12 EDT Tel , Service support , ADDENDUM: 10/04/18 1022 IMPRESSION: Occlusion of the right vertebral artery. N.B. : The above information has been verbally conveyed by Radha Hadley MD to Perez Walsh MD, on 10/04/2018 10:14:31 (ET). Electronically Signed: Radha Hadley MD at 10:12 EDT Tel , Service support , Neck CTA 10/04/18 09:23 IMPRESSION: Less than 50% stenosis of the bilateral internal carotid arteries. Dolichoectasia of the left-sided vertebral artery. Atretic right vertebral artery throughout the course until the foramen. N.B. : The above information has been verbally conveyed by Maggy Hector MD to MD Aleksey, on 10/04/2018 10:07:28 (ET). Electronically Signed: Maggy Hector MD at 10:08 EDT Tel , Service support , ADDENDUM: 10/04/18 1015 IMPRESSION: Less than 50% stenosis of the bilateral internal carotid arteries. Dolichoectasia of the left-sided vertebral artery. Atretic right vertebral artery throughout the course until the foramen. N.B. : The above information has been verbally conveyed by Maggy Hector MD to MD Aleksey, on 10/04/2018 10:07:28 (ET). Electronically Signed: Maggy Hector MD at 10:08 EDT Tel , Service support , ADDENDUM: 10/04/18 1038 Brain MRI 10/05/18 07:15 IMPRESSION: 1. Involutional changes of the brain, as described above. 2. Questionable areas of restricted diffusion within the basal ganglia and lise as described. Acute infarcts cannot be excluded in these areas but certainly these findings could be artifactual. 3. Paranasal sinus disease, as described. Electronically Signed: Livia Lyons MD at 10:02 EDT , Service support , Current Medications Amlodipine Besylate (Norvasc) 5 mg PO DAILY [facility] Aspirin (Aspirin, Baby) 81 mg PO DAILY@0800 [facility] Last Admin: 10/05/18 09:44 Dose: 81 mg Atorvastatin Calcium (Lipitor) 80 mg PO QHS [facility] Last Admin: 10/04/18 23:49 Dose: 80 mg Labetalol HCl (Trandate) 10 mg IV Q4H PRN PRN PRN Reason: BLOOD PRESSURE >220/120 Lisinopril (Zestril) 10 mg PO DAILY [facility] Magnesium Hydroxide (Milk Of Magnesia) 30 ml PO DAILY PRN PRN PRN Reason: Constipation Pantoprazole Sodium (Protonix) 20 mg PO DAILY [facility] Medical Necessity - Tobacco Use Smoking Status: Never smoker Assessment/Plan All Active Problems Stroke (Acute) 72 y/o admitted with a complaint of right facial droop 1. CVA, likely ischemic * NIHSS was 7 on admission, now down to 2 * didnt receive TPA as he was out of window for it * Brain CT showed dolichoectasia of the left vertebral artery extending into basilar artery and chronic appearing low attenuation in the periventricular white matter with a small remote left external capsule lacunar infarct. CT angiography of the head showed occlusion of the distal right vertebral artery and irregularity of the M1 and M2 branches with minimal luminal narrowing suggesting atherosclerotic plaque formation without an occlusion. * CT angiogram of the neck showed less than 50% stenosis of the bilateral internal carotid arteries. * MRI this morning showed involutional changes of the brain and questionable areas of restricted diffusion within the basal ganglia and lise as described. MRI reviewed with neurologist who thinks there is an infarct in the left internal capsule. * will resume BP meds today * continue on aspirin 81mg daily and add on plavix 75mg daily * PT.OT on board * A1C was 5.5 * Lipid panel showed cholesterol of 202 and LDL of 139 with HDL of 41. Currently on high intensity statin. * neurology on board. * for placement of 30 day monitor tomorrow * 2. Hyponatremia: Resolved. Sodium up to 137 today. 3. Hypertension: On amlodipine and lisinopril. BP missed today with goal BP less than 130/80. DVT prophylaxis: heparin Disposition: for discharge home tomorrow after Holter monitor placement. Code Visit Inpatient E&M: 51415 [facility] L3
[2018-10-05] MEDS: Lisinopril 10 MG Tablet PO (12:04)
[2018-10-05] MEDS: amLODIPine 5 MG Tablet PO (12:04)
--- NOTE | 2018-10-05 13:07 | CON.PCM_ITS ---
Problem List (1) Stroke Status: Acute Reason for Consult Date of Consultation: 10/05/18 Reason for Consultation: Stroke History of Present Illness: The patient is a 72 year old M with PMH HTN admitted with acute onset right sided weakness and facial droop. Per patient he woke up yesterday (10/04/18) with right sided weakness and facial droop, woke up in the morning and had difficulty maneuvering the blanket and tired to get out the bed but fell per documentation. At present per patient his weakness has been improving, denies any BHAKTA, dizziness, speech disturbances, visual disturbances or sensory loss. NIHSS was7 per hospitalist not documentation on admission. Per patient he lives with his , does not use cane or walker to ambulate, denies any falls, does drive and does not need any assistance for his ADLS prior to this event. MRI brain done on admission reported to show ? acute left BG infarct/lise but could be artifactual (read by Bre Lyons), CTA head/neck reported to show right vertebral artery atresia/stenosis and < 50% stenosis in B/L ICA. [] Past Medical History Allergies No Known Allergies Allergy (Verified 10/04/18 09:33) Home Medications: Ambulatory Orders Medication Instructions Recorded Aspirin [Aspirin, Baby] 81 mg PO DAILY@0800 02/22/16 Amlodipine [Norvasc] 5 mg PO DAILY #30 tablet 02/23/16 Lisinopril [Zestril] 10 mg PO DAILY #30 tablet 02/23/16 Pantoprazole Sodium [Protonix] 20 mg PO DAILY #30 tablet 02/23/16 Surgical History: - - bilateral cataract surgery, bilateral corneal transplant. Psychiatric History: No pertinent psych hx Lives: Spouse/ Significant Other Smoking Status: Never smoker Alcohol: None Drugs: None - *Family History Maternal History Items: No pertinent history Review of Systems Constitutional: Reports: - - complete ROS negative except as documented in HPI Patient Problems: Active and Suspected Problems Stroke (Acute) - Physical Exam General: Alert HEENT: Normocephalic Neck: Supple Lungs: Normal air movement Cardiovascular: Normal S1, Normal S2 Abdomen: Bowel Sounds Present Extremities: No cyanosis Neurological: - - consious, alert, CN 2-12 grossly intact except mild right nasolabial flattening, power -5/5 right UE, 5/5 right LE and Left UE/LE, mild pronator drift right UE, no cerebellar signs, no sensory loss, Reflexes + B/L B/S/T/K/A, gait deferred, NIHSS 2 at present, mRS 0 at baseline Psych/Mental Status: Normal Affect Vital Signs Temp Pulse Resp BP Pulse Ox 97.5 F L 68 16 163/73 H 97 10/05/18 12:02 10/05/18 12:02 10/05/18 12:02 10/05/18 12:02 10/05/18 12:02 Oxygen Flow Rate (L/min) 1 Oxygen Delivery Method Room Air Weight: 80.6 kg Body Mass Index (BMI) 27.8 Finger Stick Blood Glucose 123 Intake and Output for Last 24 Hours 10/03/18 10/04/18 10/05/18 22:59 23:59 23:59 Intake Total 50 / 50 Output Total 200 / 200 Balance -150 / -150 Laboratory Tests Past 24 Hrs 10/04/18 10/05/18 10/05/18 16:53 05:35 05:35 WBC 10.8 RBC 4.93 Hgb 15.6 Hct 45.5 MCV 92.3 MCH 31.6 MCHC 34.3 RDW 13.1 RDW Differential 43.2 Plt Count 186 MPV 10.4 Immature Gran % (Auto) 1.100 H Neut % (Auto) 71.0 H Lymph % (Auto) 17.4 L [place] % (Auto) 8.8 Eos % (Auto) 1.5 Baso % (Auto) 0.2 Absolute Neuts (auto) 7.7 Absolute Lymphs (auto) 1.87 Total Counted Not Reportable Sodium 137 Potassium 3.9 Chloride 101 Carbon Dioxide 26.0 Anion Gap 10 BUN 14 Creatinine 0.79 Estim Creat Clear Calc 61.14 Est GFR (MDRD) Af Amer 125 Est GFR (MDRD) Non-Af 103 BUN/Creatinine Ratio 17.8 Glucose 92 Hemoglobin A1c 5.5 Calcium 8.5 Triglycerides 112 Cholesterol 202 H LDL Cholesterol 139 H VLDL Cholesterol 22 HDL Cholesterol 41 Assessment/Plan All Active Problems Stroke (Acute) The patient is a 72 year old M with PMH HTN admitted with acute onset right sided weakness and facial droop. Per patient he woke up yesterday (10/04/18) with right sided weakness and facial droop, woke up in the morning and had difficulty maneuvering the blanket and tired to get out the bed but fell per documentation. At present per patient his weakness has been improving, denies any BHAKTA, dizziness, speech disturbances, visual disturbances or sensory loss. NIHSS was7 per hospitalist not documentation on admission. Per patient he lives with his , does not use cane or walker to ambulate, denies any falls, does drive and does not need any assistance for his ADLS prior to this event. MRI brain done on admission reported to show ? acute left BG infarct/lise but could be artifactual (read by Bre Lyons), CTA head/neck reported to show right vertebral artery atresia/stenosis vs occlusion and < 50% stenosis in B/L ICA. Impression TIA vs ? 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 -ASA 81 mg PO once daily, Plavix 75 mg PO once daily. Dual AP for 3 weeks, then switch to single AP with ASA. NIHSS 2 at present, Bleeding risks discussed -Lipitor 80 mg PO q hs -TTE-p -LDL-139, [id number] -shelter goal BP < 130/80 mmHg, and Goal Hba1c < 7% -30 day event recorder -PT/OT and ST -Fall precautions -Stroke risk factors discussed and stroke education provided -GI/DVT prophylaxis -Further medical management per hospitalist team -Follow up with Neurology as outpatient in 2-3 weeks -Please call with questions if any -Thank you for allowing us to participate in patient's care and management Code Visit Inpatient E&M: 72714 Init Hosp L3
--- NOTE | 2018-10-05 14:03 | CASEMGMT ---
Social Work PHQ-9 assessment completed. PHQ-9 score of 01, showing no signs of depression. PHQ resource guide provided and explained to patient in the event that this would be needed. See attached for complete assessment. Spoke with patient further about current home situation and support system. Patient reporting to live with spouse in a 1-story home with x2 steps to enter the home. Patient plans to return to home at time of discharge. Noted that therapy has not evaluated patient at this time for recommendation. Patient is agreeable to RU/TCU if continued inpatient therapy services are recommended by PT/OT. Patient did note that patient spouse is currently on the TCU unit and will not be returning to home for another week per patient. Patient voicing to have support from son that lives local and other family members as well. Patient denies any depression/anxiety. Support given. Social Work will continue to follow, if any further services are needed. Balwinder JARQUIN, MAREN
--- NOTE | 2018-10-05 16:07 | CASEMGMT ---
Therapy states no therapy recommended at discharge at this time. Dr. Eastman states she would like pt to have an 'aide or someone from [facility] to check on him.' This RN CM to room to speak with pt/ at this time and pt states that he will not be homebound because he would want to come visit his here in TCU. Pt states no need for PT/OT at discharge as this RN CM did offer OP therapy. Pt feels that he is back to his normal level of functioning at this time. Pt states that they do have a walker at home but does not feel that he would need to use it. states that they do have some christian family that may be able to assist, if needed. Pt will now be staying till tomorrow, so this RN CM will check in with pt in the am for any further questions/needs. Pt's is concerned whether pt will be cleared to drive or not at discharge and this RN CM will clarify with Dr. Eastman in the am. Lori RN CM
[2018-10-05] MEDS: Enoxaparin 40 MG/0.4 ML Syringe SC (16:18)
[2018-10-05] MEDS: Clopidogrel Bisulfate 75 MG Tablet PO (16:18)
[2018-10-05] MEDS: Atorvastatin Calcium 80 MG Tablet PO (20:43)
--- NOTE | 2018-10-05 20:43 | NURSING ---
Pt requesting HS meds with [facility] and [facility].
[2018-10-06] VITALS (9 sets, daily range): BP systolic 140–177; BP diastolic 60–85; PULSE 59–78; RESP 15–18; TEMP 36.7–37.2; O2SAT 93–96; BMI 27.8
[2018-10-06 07:02] LABS: Absolute Lymphocyte Count 1.91 X10^3/ul (0.83-4.51); Absolute Neutrophil Count 7.1 X10^3/uL (2.0-7.7); Basophil# 0.02 X10^3/uL; Basophil% 0.2 % (0-1); Eosinophil# 0.21 X10^3/uL; Eosinophils% 2.1 % (0-5); Hematocrit 44.7 % (40-54); Hemoglobin 15.4 g/dl (13.0-16.5); Lymphocyte # 1.91 X10^3/ul (4.0); Lymphocyte % 18.7 % (19-41); Mean Corp Hgb Conc 34.5 g/gl (32-36); Mean Corpuscular Hgb 31.9 pg (27.0-32.0); Mean Corpuscular Volume 92.5 fL (80-94); Mean Platelet Vol. 10.6 fl (6.2-12.0); Monocyte# 0.88 X10^3/uL; Monocyte% 8.6 % (0-10); Neutrophil # 7.12 X10^3/uL (2.7-7.7); Neutrophil % 69.4 % (47-70); Platelet Count 173 K/mm3 (150-450); RBC Distribution Width SD 43.2 fl (35.1-43.9); Red Blood Count 4.83 M/mm3 (4.6-6.2); White Blood Count 10.2 K/mm3 (4.4-11.0)
[2018-10-06 07:04] LABS: POSITIVE COUNT NO; POSITIVE DIFFERENTIAL NO; POSITIVE MORPHOLOGY NO
[2018-10-06 07:18] LABS: Anion Gap 9 (5-15); BUN 14 mg/dL (7-18); BUN/Creat Ratio 16.9 RATIO (10-20); Calcium,Total 8.4 mg/dL (8.5-10.1); Chloride 101 mmol/L (98-107); Creatinine, Serum 0.83 mg/dL (0.70-1.30); EST Glomerular Filtration Rate 97 mL/min (>60); Est Glom Filt Rate - Afr Amer 118 mL/min (>60); Estimated Creatinine Clearance 73.66 ml/min; Glucose 92 mg/dL (74-106); Potassium 4.1 mmol/L (3.5-5.1); Sodium Level 138 mmol/L (136-145)
[2018-10-06] MEDS: amLODIPine 5 MG Tablet PO (08:44)
[2018-10-06] MEDS: Clopidogrel Bisulfate 75 MG Tablet PO (08:44)
[2018-10-06] MEDS: Enoxaparin 40 MG/0.4 ML Syringe SC (08:44)
[2018-10-06] MEDS: Aspirin 81 MG TAB.CHEW PO (08:44)
[2018-10-06] MEDS: Pantoprazole Sodium 20 MG Tablet PO (08:44)
[2018-10-06] MEDS: Lisinopril 10 MG Tablet PO (08:45)
--- NOTE | 2018-10-06 10:02 | DCINST_ITS ---
- Discharge Diagnoses Current Active Problems: Current Active and Chronic Problems Stroke (Acute) You will use the following diet at home:: Cardiac Your food should be the consistency of: Regular Your liquids should be the consistency of: Regular/Thin Discharge Activity: Return to Normal Activity Weight Bearing Status: Weight bearing as tolerated Call your doctor if you observe: Numbness or Tingling, Shortness of breath, Dizziness Instructions: Stroke and Heart Disease, Controlling High Blood Pressure Additional Instructions: to have Holter Monitor for 30 days. Allergies/Adverse Reactions: Allergies No Known Allergies Allergy (Verified 10/04/18 09:33) Medications to take at Discharge Aspirin [Aspirin, Baby] 81 mg PO DAILY@0800 02/22/16 Lisinopril [Zestril] 10 mg PO DAILY #30 tablet 02/23/16 Pantoprazole Sodium [Protonix] 20 mg PO DAILY #30 tablet 02/23/16 Amlodipine [Norvasc] 10 mg PO DAILY #30 tablet 10/06/18 Aspirin [Aspirin, Baby] 81 mg PO DAILY@0800 #30 tab.chew 10/06/18 Atorvastatin Calcium [Lipitor] 80 mg PO QHS #30 tablet 10/06/18 Clopidogrel Bisulfate [Plavix] 75 mg PO DAILY #21 tablet 10/06/18 The following prescriptions were given: Amlodipine [Norvasc] 10 mg PO DAILY #30 tablet Aspirin [Aspirin, Baby] 81 mg PO DAILY@0800 #30 tab.chew Atorvastatin Calcium [Lipitor] 80 mg PO QHS #30 tablet Clopidogrel Bisulfate [Plavix] 75 mg PO DAILY #21 tablet Orders to be completed after discharge: Cardiac Holter Monitor, Set-Up [[facility]] Location: None Selected Primary Care Physician: Aman Lockwood MD [Primary Care Provider] - Please follow up with your Primary Care Physician in: one week Test Results: Test results from this visit will be discussed in further detail at your follow- up appointment, if applicable. Please Follow Up With: Shante Mattson MD When: one week Proposed Discharge Date: 10/06/18
--- NOTE | 2018-10-06 10:02 | PCM.DC.SUM ---
Discharge Date and Diagnosis Date of Admission: 10/04/18 Date of Discharge: 10/06/18 - Primary Discharge Diagnosis Active and Suspected Problems Ischemic Stroke (Acute) Hospital Course and Treatment Imaging Results: Diagnostic Data Brain CT 10/04/18 09:23 IMPRESSION: There is dolichoectasia of the left vertebral artery extending far into the basilar artery to the tip of the basilar artery where there is a fusiform appearing distended vessel best seen on image #44 coronal views. The tip of the basilar artery measures up to 7 mm. Recommend consideration for follow-up CT angiogram of the brain for clarification of the vessels. Chronic appearing low attenuation in the periventricular white matter, small remote left external capsule lacunar infarct. 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 The tip of the basilar artery measures up to 7 mm. Recommend consideration for follow-up CT angiogram of the brain for clarification of the vessels. Chronic appearing low attenuation in the periventricular white matter, small remote left external capsule lacunar infarct. N.B. : The above information has been verbally conveyed by Maggy Hector MD to Dr. Jillian MD, on 10/04/2018 09:48:58 (ET). Electronically Signed: Maggy Hector MD at 9:43 EDT Tel , Service support , Chest X-Ray 10/04/18 09:23 IMPRESSION: Stable chest moderate cardiomegaly tortuous aorta. No evidence of acute focal infiltrate. Electronically Signed: Maggy Hector MD at 10:42 EDT Tel , Service support , Head CTA 10/04/18 09:23 IMPRESSION: Occlusion of the right vertebral artery. Electronically Signed: Radha Hadley MD at 10:12 EDT Tel , Service support , ADDENDUM: 10/04/18 1022 IMPRESSION: Occlusion of the right vertebral artery. N.B. : The above information has been verbally conveyed by Radha Hadley MD to Perez Walsh MD, on 10/04/2018 10:14:31 (ET). Electronically Signed: Radha Hadley MD at 10:12 EDT Tel , Service support , Neck CTA 10/04/18 09:23 IMPRESSION: Less than 50% stenosis of the bilateral internal carotid arteries. Dolichoectasia of the left-sided vertebral artery. Atretic right vertebral artery throughout the course until the foramen. N.B. : The above information has been verbally conveyed by Maggy Hector MD to MD Aleksey, on 10/04/2018 10:07:28 (ET). Electronically Signed: Maggy Hector MD at 10:08 EDT Tel , Service support , ADDENDUM: 10/04/18 1015 IMPRESSION: Less than 50% stenosis of the bilateral internal carotid arteries. Dolichoectasia of the left-sided vertebral artery. Atretic right vertebral artery throughout the course until the foramen. N.B. : The above information has been verbally conveyed by Maggy Hector MD to MD Aleksey, on 10/04/2018 10:07:28 (ET). Electronically Signed: Maggy Hector MD at 10:08 EDT Tel , Service support , ADDENDUM: 10/04/18 1038 Brain MRI 10/05/18 07:15 IMPRESSION: 1. Involutional changes of the brain, as described above. 2. Questionable areas of restricted diffusion within the basal ganglia and lise as described. Acute infarcts cannot be excluded in these areas but certainly these findings could be artifactual. 3. Paranasal sinus disease, as described. Electronically Signed: Livia Lyons MD at 10:02 EDT , Service support , neurology- Dr Mattson Operations: None Procedures: 2-D Echocardiogram Summary of Care Provided: The patient is a 72 year old M with a PMH of hypertension. He was admitted with a complaint of right-sided facial droop and right-sided weakness. Patient's last known well was last night when he went to bed. He could not give an exact time of last known well. However he says during the night he woke up to arrange his sheets over himself and felt well. He woke up this morning and tried getting out of bed but was noticed that his right side was slightly weak. He also noticed that he had a right facial droop and so he decided coming to the ED. He denied any blurred vision, chest pain, palpitations, dizziness, abdominal pain, diarrhea vomiting. He is never had a stroke before. The ED, vitals were significant for markedly elevated blood pressure of 221/97. Chemistry was significant for sodium of 131 and troponin were negative. CBC showed white cell count of 11.1. Brain CT showed dolichoectasia of the left vertebral artery extending into basilar artery and chronic appearing low attenuation in the periventricular white matter with a small remote left external capsule lacunar infarct. CT angiography of the head showed occlusion of the distal right vertebral artery and irregularity of the M1 and M2 branches with minimal luminal narrowing suggesting atherosclerotic plaque formation without an occlusion. CT angiogram of the neck showed less than 50% stenosis of the bilateral internal carotid arteries. He was admitted for stroke workup. He had a right facial droop and mild right-sided weakness. Initial NIH score was 7 but had come down to 2 by the next morning. Right facial droop and right-sided weakness had also virtually resolved. MRI of the brain showed involutional changes of the brain and questionable areas of restricted diffusion noted within the basal ganglia and lise. MRI was reviewed with neurologist who believed there was an infarct in the left internal capsule. Initially blood pressure medications were held to allow for permissive hypertension. Medications were resumed 24 hours later. He was also put on aspirin and Plavix as well as high intensity statin. Patient remained stable and amlodipine was increased to 10 mg daily to better control blood pressure. He was discharged home on 10/06/2018 to follow-up with his primary care doctor and neurologist. He was have 30-day Holter monitor placed. However cardiovascular lab was not able to do the 30-day Holter monitor inserted a 48-hour Holter monitor. Patient will be called by the cardiology lab to come back for the 30-day Holter monitor placement within 2 days. Results are to be sent to Dr. oNah Cunningham for interpretation. Patient seen and examined prior to discharge. He had no complaints and felt well. Review of systems was otherwise negative. Labs and vitals reviewed. Home medications reviewed and reconciled. o/e: Vital Signs Height 5 ft 6.93 in Weight: 177 lb 11.081 oz Weight in Pounds 177.7 lbs Pulse Ox 96 Temperature 98.5 F Pulse Rate 74 Respiratory Rate 17 Blood Pressure 140/60 Blood Pressure Position Sitting General: Alert, Oriented x3, Cooperative, No apparent distress HEENT: Atraumatic, PERRLA, EOMI, Normocephalic Oral: Moist Mucosa Neck: Supple, No JVD, Negative Carotid Bruits Lungs: Clear to auscultation, Normal air movement, No rhonchi, No wheeze, No rales Cardiovascular: Regular rate, Regular Rhythm, Normal S1, Normal S2, No murmurs Abdomen: Bowel Sounds Present, Soft, Non Tender, Non-Distended, No Hepato-splenomegaly Extremities: No clubbing, No cyanosis, No edema, Capillary Refill Less than 3 Seconds Skin: No rashes, No breakdown Musculoskeletal: No Tenderness to Palpation of Joints or Extremities Lymphatic: No Cervical, Supraclavicular, or Inguinal Adenopathy Neurological: - - still has mild right facial droop, but it is much improved. Power in RUE and RLE is 4+/5 Psych/Mental Status: Normal Affect, Appropriate, Alert and oriented to time, place, person, mood and affect He was discharged with a prescription for Plavix for 21 days and aspirin. He is to be on aspirin and Plavix for 21 days and then to continue with aspirin indefinitely. - Physical Exam Vital Signs Temp Pulse Resp BP Pulse Ox 98.0 F 75 15 177/85 H 96 10/06/18 08:28 10/06/18 08:28 10/06/18 08:28 10/06/18 08:28 10/06/18 08:28 Oxygen Flow Rate (L/min) 1 Oxygen Delivery Method Room Air Weight: 177 lb 11.081 oz Body Mass Index (BMI) 27.8 Finger Stick Blood Glucose 123 Intake and Output for Last 24 Hours 10/04/18 10/05/18 10/06/18 23:59 23:59 23:59 Intake Total 50 / 50 360 / 360 Output Total 550 / 550 Balance -500 / -500 360 / 360 Laboratory Tests Past 24 Hrs 10/06/18 10/06/18 06:20 06:20 WBC 10.2 RBC 4.83 Hgb 15.4 Hct 44.7 MCV 92.5 MCH 31.9 MCHC 34.5 RDW 13.0 RDW Differential 43.2 Plt Count 173 MPV 10.6 Immature Gran % (Auto) 1.000 H Neut % (Auto) 69.4 Lymph % (Auto) 18.7 L [place] % (Auto) 8.6 Eos % (Auto) 2.1 Baso % (Auto) 0.2 Absolute Neuts (auto) 7.1 Absolute Lymphs (auto) 1.91 Total Counted Not Reportable Sodium 138 Potassium 4.1 Chloride 101 Carbon Dioxide 28.0 Anion Gap 9 BUN 14 Creatinine 0.83 Estim Creat Clear Calc 73.66 Est GFR (MDRD) Af Amer 118 Est GFR (MDRD) Non-Af 97 BUN/Creatinine Ratio 16.9 Glucose 92 Calcium 8.4 L Discharge Diet: Low fat/ Low Cholesterol Discharge Activity: Return to Normal Activity Weight Bearing Status: Weight bearing as tolerated Call your doctor if you observe: Numbness or Tingling, Shortness of breath, Dizziness Home Medications: Medications to take at Discharge Aspirin [Aspirin, Baby] 81 mg PO DAILY@0800 02/22/16 Lisinopril [Zestril] 10 mg PO DAILY #30 tablet 02/23/16 Pantoprazole Sodium [Protonix] 20 mg PO DAILY #30 tablet 02/23/16 Amlodipine [Norvasc] 10 mg PO DAILY #30 tablet 10/06/18 Atorvastatin Calcium [Lipitor] 80 mg PO QHS #30 tablet 10/06/18 Clopidogrel Bisulfate [Plavix] 75 mg PO DAILY #21 tablet 10/06/18 Following Prescrptions Were Given to Patient: Amlodipine [Norvasc] 10 mg PO DAILY #30 tablet Atorvastatin Calcium [Lipitor] 80 mg PO QHS #30 tablet Clopidogrel Bisulfate [Plavix] 75 mg PO DAILY #21 tablet Other Amb Orders: Cardiac Holter Monitor, Set-Up [[facility]] Location: None Selected Cardiac Holter Monitor, Set-Up [[facility]] Location: None Selected Primary Care Physician: Aman Lockwood MD [Primary Care Provider] - Please follow up with your Primary Care Physician in: one week Please Follow Up With: Shante Mattson MD When: one week Patient Instructions: Stroke and Heart Disease, Controlling High Blood Pressure Disposition: Home Minutes spent on discharge:: 45 Patient Condition:: Stable Medical Necessity - Tobacco Use Smoking Status: Never smoker Meaningful Use Info Meaningful Use Diagnoses (Choose all that apply): Ischemic CVA - CVA Therapy Assessed for PT,OT and/or ST?: Yes - Ischemic Stroke Antithrombotic order at d/c?: Yes Dx of Atrial fib/flutter?: No Anticoagulant at discharge?: No Reason anticoagulant not ordered: Procedure not Indicated Statins at discharge?: Yes Primary Dx Acute Ischemic CVA?: Yes IV tPA ordered during stay?: No Reason IV t-PA not ordered: Medical Contraindication - out of TPA window Code Visit Inpatient E&M: 61819 Disch Hosp
--- NOTE | 2018-10-06 10:39 | CASEMGMT ---
This RN CM to pt's room at this time and pt states no concerns with going home at discharge. Pt states no needs at home at this time. Pt states that his sister and [id number]-gua will be coming to visit and assist with anything that he needs. Per Dr. Eastman, she does not recommend that pt drive right away and pt voices understanding at this time. Pt voices no further questions/concerns/needs at this time. Pt states that his will be discharged next friday from TCU. SStaten GIO LABOY
--- NOTE | 2018-10-06 11:58 | PHA.DC.MC ---
Pharmacy Service has performed discharge medication reconciliation and counseling for this patient. The patient's discharge medication list was reviewed for discrepancies and discrepancies were resolved. The patient was counseled on the following discharge medications and changes in medications for homegoing were reviewed. Lisinopril [Zestril] 10 mg PO DAILY #30 tablet 02/23/16 Amlodipine [Norvasc] 10 mg PO DAILY #30 tablet 10/06/18 Atorvastatin Calcium [Lipitor] 80 mg PO QHS #30 tablet 10/06/18 Clopidogrel Bisulfate [Plavix] 75 mg PO DAILY #21 tablet 10/06/18 The Reason for Use, instructions for use, and potential side effects were reviewed for all new medications. The patient's questions regarding all of their medications were answered. The patient demonstrated some understanding but would benefit from further education and reinforcement. Home Medications Aspirin [Aspirin, Baby] 81 mg PO DAILY@0800 02/22/16 Lisinopril [Zestril] 10 mg PO DAILY #30 tablet 02/23/16 Pantoprazole Sodium [Protonix] 20 mg PO DAILY #30 tablet 02/23/16 Amlodipine [Norvasc] 10 mg PO DAILY #30 tablet 10/06/18 Atorvastatin Calcium [Lipitor] 80 mg PO QHS #30 tablet 10/06/18 Clopidogrel Bisulfate [Plavix] 75 mg PO DAILY #21 tablet 10/06/18
[2018-10-06 15:46] LABS: Bedside Glucose 123 mg/dL (70-110)
== END 2018-10-06 14:01 | disposition home or self-care (01) | DRG 65 ==
LOC: ED 10:21 → PCU 11:51
PROVIDERS: Admitting Provider Student in an Organized Health Care Education/Training Program; Emergency Provider Emergency Medicine; Family Provider Family Medicine; PCP Family Medicine; Visit Provider Student in an Organized Health Care Education/Training Program
DX: I63.9 Cerebral infarction, unspecified (principal); G81.91 Hemiplegia, unspecified affecting right dominant side; E87.1 Hypo-osmolality and hyponatremia; I10 Essential (primary) hypertension; R29.810 Facial weakness; R29.707 NIHSS score 7
CPT/HCPCS: 36415; 70450; 70496; 70498; 70551; 71045; 80048; 80061; 82962; 83036; 84484; 85025; 85610; 85730; 92507; 92526; 92610; 93005; 93306; 97161; 97166; 97802; 99285; J7030; Q9967; A4216

== ENCOUNTER → 2018-10-06 11:09 | Outpatient (CLI) | payer MEDICARE, OTHER, SELFPAY ==
[2018-10-05 22:08] VITALS: BMI 27.8
== END ==
PROVIDERS: Family Provider Family Medicine; PCP Family Medicine; Visit Provider Student in an Organized Health Care Education/Training Program
DX: Z86.73 Personal history of transient ischemic attack (TIA), and cerebral infarction without residual deficits (principal)
CPT/HCPCS: 93225; 93226

== ENCOUNTER → 2018-10-15 11:58 | Outpatient (CLI) | payer MEDICARE, OTHER, SELFPAY ==
[2018-10-06 12:56] VITALS: BMI 27.8
[2018-10-15 14:19] LABS: Absolute Lymphocyte Count 1.95 X10^3/ul (0.83-4.51); Absolute Neutrophil Count 6.9 X10^3/uL (2.0-7.7); Basophil# 0.03 X10^3/uL; Basophil% 0.3 % (0-1); Eosinophil# 0.17 X10^3/uL; Eosinophils% 1.7 % (0-5); Hematocrit 46.6 % (40-54); Hemoglobin 15.9 g/dl (13.0-16.5); Lymphocyte # 1.95 X10^3/ul (4.0); Lymphocyte % 19.6 % (19-41); Mean Corp Hgb Conc 34.1 g/gl (32-36); Mean Corpuscular Hgb 31.5 pg (27.0-32.0); Mean Corpuscular Volume 92.3 fL (80-94); Mean Platelet Vol. 11.2 fl (6.2-12.0); Neutrophil # 6.93 X10^3/uL (2.7-7.7); Neutrophil % 69.5 % (47-70); Platelet Count 209 K/mm3 (150-450); RBC Distribution Width CV 12.9 % (11.6-14.6); RBC Distribution Width SD 42.9 fl (35.1-43.9); Red Blood Count 5.05 M/mm3 (4.6-6.2)
[2018-10-15 14:20] LABS: POSITIVE COUNT NO; POSITIVE DIFFERENTIAL NO; POSITIVE MORPHOLOGY NO
[2018-10-15 14:21] LABS: ALB/GLOB Ratio 1.2 RATIO (0.9-2.4); AST(SGOT) 21 U/L (15-37); Alanine Aminotransfer ALT/SGPT 33 U/L (16-61); Albumin, Serum 3.8 g/dL (3.2-5.0); Alkaline Phosphatase 44 U/L (45-117); Anion Gap 8 (5-15); BUN 13 mg/dL (7-18); BUN/Creat Ratio 17.1 RATIO (10-20); Calcium,Total 9.1 mg/dL (8.5-10.1); Chloride 97 mmol/L (98-107); Creatinine, Serum 0.76 mg/dL (0.70-1.30); EST Glomerular Filtration Rate 107 mL/min (>60); Est Glom Filt Rate - Afr Amer 130 mL/min (>60); Globulin 3.1 g/dL (2.2-4.2); Glucose 92 mg/dL (74-106); Potassium 4.5 mmol/L (3.5-5.1); Protein, Total 6.9 g/dL (6.4-8.2); Sodium Level 132 mmol/L (136-145)
== END ==
PROVIDERS: Family Provider Family Medicine; PCP Family Medicine; Referring Provider Family Medicine; Visit Provider Family Medicine
DX: I67.89 Other cerebrovascular disease (principal); E87.1 Hypo-osmolality and hyponatremia
CPT/HCPCS: 36415; 80053; 85025

== ENCOUNTER → 2018-11-11 | Outpatient (CLI) | payer MEDICARE, OTHER, SELFPAY ==
[2018-10-06 12:56] VITALS: BMI 27.8
[2018-11-11 17:36] LABS: Urine Sodium 33 mmol/L (Not Establ.)
[2018-11-11 17:52] LABS: Anion Gap 8 (5-15); BUN 12 mg/dL (7-18); BUN/Creat Ratio 16.5 RATIO (10-20); Chloride 99 mmol/L (98-107); Creatinine, Serum 0.73 mg/dL (0.70-1.30); EST Glomerular Filtration Rate 113 mL/min (>60); Est Glom Filt Rate - Afr Amer 137 mL/min (>60); Glucose 134 mg/dL (74-106); Magnesium 2.3 mg/dL (1.6-2.6); Potassium 4.5 mmol/L (3.5-5.1); Sodium Level 136 mmol/L (136-145)
== END | disposition home or self-care (01) ==
LOC: MFPLAB 14:45
PROVIDERS: Family Provider Family Medicine; PCP Family Medicine; Referring Provider Family Medicine; Visit Provider Family Medicine
DX: E87.1 Hypo-osmolality and hyponatremia (principal)
CPT/HCPCS: 36415; 80048; 83735; 84300

== ENCOUNTER → 2019-03-26 | Outpatient (CLI) | payer MEDICARE, OTHER, SELFPAY ==
[2018-10-06 12:56] VITALS: BMI 27.8
[2019-03-26 10:15] LABS: ALB/GLOB Ratio 1.2 RATIO (0.9-2.4); AST(SGOT) 25 U/L (15-37); Alanine Aminotransfer ALT/SGPT 48 U/L (16-61); Albumin, Serum 3.7 g/dL (3.2-5.0); Alkaline Phosphatase 51 U/L (45-117); Anion Gap 10 (5-15); BUN 12 mg/dL (7-18); Calcium,Total 8.7 mg/dL (8.5-10.1); Chloride 99 mmol/L (98-107); Cholesterol 105 mg/dL (200); Creatinine, Serum 0.86 mg/dL (0.70-1.30); EST Glomerular Filtration Rate 93 mL/min (>60); Est Glom Filt Rate - Afr Amer 112 mL/min (>60); Globulin 3.2 g/dL (2.2-4.2); Glucose 100 mg/dL (74-106); High Density Lipoprotein 43 mg/dL; PSA,Total - Annual Screen 2.18 ng/mL (0.00-4.00); Potassium 4.2 mmol/L (3.5-5.1); Protein, Total 6.9 g/dL (6.4-8.2); Sodium Level 137 mmol/L (136-145); Triglycerides 73 mg/dL; Very Low Density Lipoprotein 15 mg/dL (5-40)
== END | disposition home or self-care (01) ==
LOC: MFPLAB 08:20
PROVIDERS: Family Provider Family Medicine; PCP Family Medicine; Referring Provider Family Medicine; Visit Provider Nurse Practitioner Family
DX: I67.89 Other cerebrovascular disease (principal); Z12.5 Encounter for screening for malignant neoplasm of prostate
CPT/HCPCS: 36415; 80053; 80061; 84153; G0103

== ENCOUNTER → 2019-08-19 11:07 | Outpatient (CLI) | payer MEDICARE, OTHER, SELFPAY ==
[2018-10-06 12:56] VITALS: BMI 27.8
[2019-08-19 12:25] LABS: Absolute Lymphocyte Count 1.81 X10^3/uL (0.83-4.51); Absolute Neutrophil Count 7.2 X10^3/uL (2.0-7.7); Basophil# 0.07 X10^3/uL; Basophil% 0.7 % (0-1); Eosinophil# 0.28 X10^3/uL; Eosinophils% 2.7 % (0-5); Lymphocyte # 1.81 X10^3/ul (4.0); Lymphocyte % 17.5 % (19-41); Mean Corpuscular Hgb 30.8 pg (27.0-32.0); Mean Corpuscular Volume 90.6 fL (80-94); Monocyte# 0.84 X10^3/uL; Monocyte% 8.1 % (0-10); NRBC Flagged by Analyzer 0 % (0-5); Neutrophil # 7.24 X10^3/uL (2.7-7.7); Neutrophil % 69.9 % (47-70); Platelet Count 198 K/mm3 (150-450); RBC Distribution Width CV 12.6 % (11.6-14.6); RBC Distribution Width SD 41.6 fl (35.1-43.9); Red Blood Count 5.19 M/mm3 (4.6-6.2); White Blood Count 10.4 K/mm3 (4.4-11.0)
[2019-08-19 13:00] LABS: ALB/GLOB Ratio 1.2 RATIO (0.9-2.4); AST(SGOT) 27 U/L (15-37); Alanine Aminotransfer ALT/SGPT 50 U/L (16-61); Albumin, Serum 3.9 g/dL (3.2-5.0); Alkaline Phosphatase 52 U/L (45-117); Anion Gap 6 (5-15); BUN 10 mg/dL (7-18); BUN/Creat Ratio 12.2 RATIO (10-20); Calcium,Total 9.2 mg/dL (8.5-10.1); Chloride 100 mmol/L (98-107); Creatinine, Serum 0.82 mg/dL (0.70-1.30); EST Glomerular Filtration Rate 98 mL/min (>60); Est Glom Filt Rate - Afr Amer 118 mL/min (>60); Globulin 3.3 g/dL (2.2-4.2); Glucose 80 mg/dL (74-106); Magnesium 2.2 mg/dL (1.6-2.6); Potassium 3.9 mmol/L (3.5-5.1); Protein, Total 7.2 g/dL (6.4-8.2); Sodium Level 135 mmol/L (136-145); Thyroid Stim Hormone (TSH) 1.47 uIU/mL (0.358-3.74)
[2019-08-19 13:07] LABS: Osmolality, Serum 279 mOsm/KG (280-301)
[2019-08-19 14:34] LABS: Osmolality, Urine 221 mOsm/KG
== END ==
PROVIDERS: PCP Family Medicine; Referring Provider Family Medicine; Visit Provider Family Medicine
DX: E87.1 Hypo-osmolality and hyponatremia (principal); I49.9 Cardiac arrhythmia, unspecified
CPT/HCPCS: 36415; 80053; 83735; 83930; 83935; 84443; 85025

== ENCOUNTER → 2019-11-18 09:55 | Outpatient (CLI) | payer MEDICARE, OTHER, SELFPAY ==
[2018-10-06 12:56] VITALS: BMI 27.8
[2019-11-18 10:10] LABS: Bacteria 0 SEEN /hpf (None Seen); Mucous, Urine 0 SEEN /hpf (<or=2+); Red Blood Cells-Urine 0 SEEN /hpf (0-5); Squamous Epithelial Cells - UA 0 SEEN /hpf (0-5)
[2019-11-18 12:10] LABS: Color, Urine Yellow (Yellow); Glucose, Dipstick Normal (Normal); Ketone-Dipstick Negative (Negative); Leukocyte Esterase-Dipstick 25 /ul (Negative); Nitrite-Dipstick Negative (Negative); Occult Blood-Urine Negative /ul (Negative); Protein-Dipstick Negative (Negative); Specific Gravity, Urine 1.005 (1.002-1.030); Urine Bilirubin Dipstick Negative (Negative); Urine Clarity Clear (Clear); Urine Urobilinogen Normal (Normal)
[2019-11-18 12:16] LABS: White Blood Cells 0-5 SEEN /hpf (0-5)
[2019-11-18 12:35] LABS: ALB/GLOB Ratio 1.2 RATIO (0.9-2.4); AST(SGOT) 26 U/L (15-37); Alanine Aminotransfer ALT/SGPT 44 U/L (16-61); Albumin, Serum 3.8 g/dL (3.2-5.0); Alkaline Phosphatase 55 U/L (45-117); Anion Gap 7 (5-15); BUN 12 mg/dL (7-18); BUN/Creat Ratio 15.3 RATIO (10-20); Calcium,Total 9.1 mg/dL (8.5-10.1); Chloride 101 mmol/L (98-107); Creatinine, Serum 0.78 mg/dL (0.70-1.30); EST Glomerular Filtration Rate 103 mL/min (>60); Est Glom Filt Rate - Afr Amer 125 mL/min (>60); Globulin 3.1 g/dL (2.2-4.2); Glucose 139 mg/dL (74-106); Potassium 4.2 mmol/L (3.5-5.1); Protein, Total 6.9 g/dL (6.4-8.2); Sodium Level 136 mmol/L (136-145)
[2019-11-18 12:42] LABS: Microalbumin,Random Urine 11.2 mg/L (NO RANGE EST.); Microalbumin:Creatinine Ratio 37.7 mg/g CRE (<30 mg/g CRE); Urine Sodium 34 mmol/L (Not Establ.)
[2019-11-18 13:25] LABS: Osmolality, Serum 282 mOsm/KG (280-301); Osmolality, Urine 284 mOsm/KG
== END ==
PROVIDERS: PCP Family Medicine; Referring Provider Family Medicine; Visit Provider Family Medicine
DX: E87.1 Hypo-osmolality and hyponatremia (principal); I10 Essential (primary) hypertension
CPT/HCPCS: 80053; 81001; 82043; 82570; 83930; 83935; 84300

== ENCOUNTER → 2020-08-21 12:05 | Outpatient (CLI) | payer MEDICARE, OTHER, SELFPAY ==
[2018-10-06 12:56] VITALS: BMI 27.8
[2020-08-21 15:20] LABS: Osmolality, Urine 216 mOsm/KG
[2020-08-21 15:30] LABS: Creatinine, Urine (random) < 13.00 mg/dL (NO RANGE EST.); Urine Sodium 55 mmol/L (Not Establ.)
[2020-08-21 15:50] LABS: ALB/GLOB Ratio 1.2 RATIO (0.9-2.4); AST(SGOT) 23 U/L (15-37); Alanine Aminotransfer ALT/SGPT 44 U/L (16-61); Albumin, Serum 4.3 g/dL (3.2-5.0); Alkaline Phosphatase 55 U/L (45-117); Anion Gap 7 (5-15); BUN 11 mg/dL (7-18); BUN/Creat Ratio 13.7 RATIO (10-20); Calcium,Total 9.6 mg/dL (8.5-10.1); Chloride 101 mmol/L (98-107); EST Glomerular Filtration Rate 100 mL/min (>60); Est Glom Filt Rate - Afr Amer 121 mL/min (>60); Globulin 3.5 g/dL (2.2-4.2); Glucose 83 mg/dL (74-106); Potassium 4.1 mmol/L (3.5-5.1); Protein, Total 7.8 g/dL (6.4-8.2); Sodium Level 137 mmol/L (136-145); Thyroid Stim Hormone (TSH) 2.34 uIU/mL (0.358-3.74)
[2020-08-21 16:46] LABS: Osmolality, Serum 286 mOsm/KG (280-301)
== END ==
PROVIDERS: PCP Family Medicine; Visit Provider Family Medicine
DX: I10 Essential (primary) hypertension (principal); E87.1 Hypo-osmolality and hyponatremia
CPT/HCPCS: 36415; 80053; 82043; 82570; 83930; 83935; 84300; 84443

== ENCOUNTER 2021-03-27 03:18 | Emergency (ER) | payer MEDICARE, OTHER, SELFPAY ==
[2021-03-27 03:20] VITALS: BP 182/84; PULSE 92; RESP 18; TEMP 36.4; O2SAT 96; BMI 29.6
--- NOTE | 2021-03-27 04:15 | RAD_ITS ---
STUDY: X-RAY - CERVICAL SPINE REASON FOR EXAM: Male, 75 years old. pain TECHNIQUE: 3 view(s) of the cervical spine were obtained. COMPARISON: None FINDINGS: No significant prevertebral soft tissue swelling. Vascular calcifications. Multilevel degenerative changes of the cervical spine are present. Facet arthropathy. There is no acute cervical spine fracture or subluxation identified. RAD/Cerv Spine 2 or 3 Views IMPRESSION: Multilevel degenerative changes. No acute fracture or subluxation. If patient''s symptomology persists consider MRI for follow-up. Electronically Signed: Ti Cardona MD at 4:57 EDT Tel , Service support ,
--- NOTE | 2021-03-27 04:27 | EX.ED.DYSGE1 ---
HPI History of Present Illness Chief Complaint: Other, Pain/Inj Informant: patient and spouse/S.O. Narrative Narrative: 75-year-old male presents the emergency room with right-sided neck pain. The patient states that for the past month he has had a stiff neck. He was hoping that it would go away. Tonight he was laying on his left side and went to turn his head to the right and developed a sharp pain in the neck. He states that it did not radiate down his arm. He states that he got up out of bed had difficulty time trying to sleep. He said he take his blood pressure and noticed that there was in the 180 systolic range. He denies any headache any chest pain. Denies any difficulty swallowing or any throat symptoms. He has not seen anybody for this. Has not taken any medications for this. [facility] Medical History High cholesterol Hypertension TIA (transient ischemic attack) Home Medications aspirin 81 mg PO DAILY@0800 02/22/16 [History Last Taken 02/21/16] amlodipine 10 mg PO DAILY #30 tablet 10/06/18 [Rx Last Taken Unknown] atorvastatin 80 mg PO QHS #30 tablet 10/06/18 [Rx Last Taken Unknown] clopidogrel 75 mg PO DAILY #21 tablet 10/06/18 [Rx Last Taken Unknown] brimonidine 1 drp EACH EYE BID 03/27/21 [History Last Taken Unknown] prednisolone acetate 1 drp EACH EYE BID 03/27/21 [History Last Taken Unknown] Allergy/AdvReac Type Severity Reaction Status Date / Time No Known Allergies Allergy Verified 10/04/18 09:33 Surgical History Cornea replaced by transplant Social History (Updated 03/27/21 @ 04:[address] Jewel Fischer DO) Smoking Status: Never smoker substance use type: does not use ROS ROS ED Constitutional Constitutional ED: Denies chills or weight loss Eyes Eyes: Denies change in vision or diplopia ENT ENT ED: Denies ear pain, rhinorrhea or sore throat Cardiovascular Cardiovascular: Denies chest pain, orthopnea, palpitations or racing heartbeat Respiratory/Chest Respiratory/Chest: Denies cough, dyspnea or orthopnea Gastrointestinal Gastrointestinal: Denies abdominal pain, diarrhea, nausea or vomiting Genitourinary Genitourinary ED: Denies dysuria, hematuria or urinary frequency Musculoskeletal Musculoskeletal: Reports neck pain; Denies arthralgias, back pain or myalgias Integumentary Denies abscess or rash Neurologic Neurologic: Denies headache(s), paresthesias or weakness Psychiatric Psychiatric: Denies anxiety, depression, suicidal ideation or suicidal thoughts Endocrine Endocrinology: Denies polydipsia, polyphagia or polyuria Allergic/Immunologic Allergic/Immunologic ED: Denies mouth swelling, tongue swelling or urticaria EXAM Physical Exam Const Vital Signs: 03/27/21 03:20 03/27/21 03:22 03/27/21 04:46 Temperature 97.6 F L Temperature Source Temporal Pulse Rate 92 Respiratory Rate 18 Respiratory Effort Normal Respiratory Pattern Normal Blood Pressure 182/84 H 181/76 H Blood Pressure Mean 116 111 Pulse Ox 96 Oxygen Delivery Method Room Air Positive well nourished and well developed General Appearance ED: well developed HEENT Reports normocephalic, head/scalp atraumatic, TM's clear and moist mucous membranes Negative for trauma Tympanic Membrane ED: Yes TM's clear Eyes PERRL and EOMs intact bilaterally Neck no lymphadenopathy, supple and no JVD Neck Narrative: Patient reports some mild tenderness paraspinally on the right. There is no significant swelling. No lymphadenopathy. No rashes. No particular muscle spasm. Resp normal respiratory effort and clear to auscultation bilaterally Cardio regular rate, regular rhythm and no murmurs GI normal to inspection, nondistended, normoactive bowel sounds and non-tender Palpation: soft Back/Spine no CVA tenderness and normal ROM Extremity normal to inspection General Extremety ED: Negative for edema General Extremity: Negative for edema Neuro oriented x3 and CN's II-XII intact bilaterally Sensorium / Orientation: alert Motor Exam: strength 5/5 throughout Psych mental status grossly normal Mood & Affect: Negative for depressed or tearful Skin no rashes or lesions noted and no wounds MDM MDM MDM Narrative Medical decision making narrative: My interpretation of the plain films is multilevel degenerative changes particularly at C5 and C6. The patient does not have any radicular symptoms. Would recommend heat and anti-inflammatories. If the patient symptoms are not improving he should follow-up primary care perhaps physical therapy may be warranted before MRI. As far as the patient's blood pressure when I have him go ahead take his amlodipine now. If his blood pressure is not improved by around 10 this morning he can take a second dose of the amlodipine. Radiography Diagnostic Testing: Radiology Impression Cervical Spine X-Ray 03/27/21 04:15 IMPRESSION: Multilevel degenerative changes. No acute fracture or subluxation. If patient''s symptomology persists consider MRI for follow-up. Electronically Signed: Ti Cardona MD at 4:57 EDT Tel , Service support , Discharge Plan Triage Chief Complaint: Other, Pain/Inj ED Provider: Jewel Fischer Dx/Rx/DC Orders Clinical Impression: Hypertension, Acute neck pain, Degenerative arthritis of cervical spine Instructions: ED High Blood Pressure Hypertension Prescriptions: No Action aspirin 81 MG tablet,chewable 81 mg PO DAILY@0800 RF: 0 atorvastatin 80 MG tablet 80 mg PO QHS Qty: 30 RF: 1 clopidogrel 75 MG tablet 75 mg PO DAILY Qty: 21 RF: 0 amlodipine 10 MG tablet 10 mg PO DAILY Qty: 30 RF: 1 prednisolone acetate 1 % Drops,Suspension 1 drp EACH EYE BID RF: 0 brimonidine 0.2 % Drops 1 drp EACH EYE BID RF: 0 Primary Care Provider: Aman Lockwood Referrals: Aman Lockwood MD [Primary Care Provider] - 1 Week if not improving Activity Restrictions/Additional Instructions: Please monitor your blood pressure at home. If by 10:00 this morning your blood pressures not improved please take a second dose of amlodipine. I recommend heat to the posterior aspect of your neck. You may also use some anti-inflammatories such as Motrin/ibuprofen. Disposition Disposition: Home, Self Care
[2021-03-27 04:46] VITALS: BP 181/76
[2021-03-27] MEDS: amLODIPine 10 MG Tablet PO (06:00)
== END 2021-03-27 06:19 | disposition home or self-care (01) ==
PROVIDERS: Emergency Provider Emergency Medicine; PCP Family Medicine
DX: M47.812 Spondylosis without myelopathy or radiculopathy, cervical region (principal); I10 Essential (primary) hypertension; E78.00 Pure hypercholesterolemia, unspecified; Z86.73 Personal history of transient ischemic attack (TIA), and cerebral infarction without residual deficits; Z79.899 Other long term (current) drug therapy
CPT/HCPCS: 72040; 99283

== ENCOUNTER 2021-08-06 11:19 | Outpatient (CLI) | payer MEDICARE, OTHER, SELFPAY ==
[2021-08-06 16:02] LABS: Microalbumin,Random Urine 52.7 mg/L (NO RANGE EST.)
[2021-08-06 16:08] LABS: ALB/GLOB Ratio 1.1 RATIO (0.9-2.4); AST(SGOT) 24 U/L (15-37); Alanine Aminotransfer ALT/SGPT 38 U/L (16-61); Albumin, Serum 3.9 g/dL (3.2-5.0); Alkaline Phosphatase 44 U/L (45-117); Anion Gap 5 (5-15); BUN 13 mg/dL (7-18); Calcium,Total 9.2 mg/dL (8.5-10.1); Chloride 101 mmol/L (98-107); Creatinine, Serum 0.76 mg/dL (0.70-1.30); EST Glomerular Filtration Rate 106 mL/min (>60); Est Glom Filt Rate - Afr Amer 128 mL/min (>60); Globulin 3.4 g/dL (2.2-4.2); Glucose 96 mg/dL (74-106); Potassium 4.2 mmol/L (3.5-5.1); Protein, Total 7.3 g/dL (6.4-8.2); Sodium Level 137 mmol/L (136-145)
[2021-08-06 21:16] LABS: Osmolality, Serum 305 mOsm/KG (280-301)
== END 2021-08-06 23:59 | disposition short-term general hospital (02) ==
LOC: MFPLAB 11:21
PROVIDERS: PCP Family Medicine; Visit Provider Family Medicine
DX: I10 Essential (primary) hypertension (principal); E88.81 Metabolic syndrome and other insulin resistance; E87.1 Hypo-osmolality and hyponatremia; R01.1 Cardiac murmur, unspecified
CPT/HCPCS: 36415; 80053; 82043; 82570; 83930; 84443

== ENCOUNTER 2021-11-15 11:32 | Outpatient (CLI) | payer MEDICARE, OTHER, SELFPAY ==
[2021-11-15 15:30] LABS: Microalbumin,Random Urine 11.8 mg/L (NO RANGE EST.); Microalbumin:Creatinine Ratio 41.5 mg/g CRE (<30 mg/g CRE)
== END 2021-11-15 23:59 | disposition home or self-care (01) ==
LOC: MFPLAB 11:33
PROVIDERS: PCP Family Medicine; Referring Provider Family Medicine; Visit Provider Family Medicine
DX: E87.1 Hypo-osmolality and hyponatremia (principal)
CPT/HCPCS: 82043; 82570

== ENCOUNTER → 2022-05-17 | Outpatient (CLI) | payer MEDICARE, OTHER, SELFPAY ==
[2022-05-17 15:14] LABS: Hematocrit 47.7 % (40-54); Hemoglobin 16.4 g/dL (13.0-16.5); Mean Corp Hgb Conc 34.4 g/dL (32-36); Mean Corpuscular Hgb 31.4 pg (27.0-32.0); Mean Corpuscular Volume 91.2 fL (80-94); Mean Platelet Vol. 10.9 fl (6.2-12.0); Platelet Count 214 K/mm3 (150-450); RBC Distribution Width CV 13.2 % (11.6-14.6); RBC Distribution Width SD 44.1 fl (35.1-43.9); Red Blood Count 5.23 M/mm3 (4.6-6.2); White Blood Count 10.5 K/mm3 (4.4-11.0)
[2022-05-17 15:34] LABS: ALB/GLOB Ratio 1.2 RATIO (0.9-2.4); AST(SGOT) 24 U/L (15-37); Alanine Aminotransfer ALT/SGPT 39 U/L (16-61); Albumin, Serum 4.1 g/dL (3.2-5.0); Alkaline Phosphatase 54 U/L (45-117); Anion Gap 7 (5-15); BUN 12 mg/dL (7-18); BUN/Creat Ratio 14.5 RATIO (10-20); Calcium,Total 9.7 mg/dL (8.5-10.1); Chloride 100 mmol/L (98-107); Creatinine, Serum 0.82 mg/dL (0.70-1.30); EST Glomerular Filtration Rate 97 mL/min (>60); Est Glom Filt Rate - Afr Amer 117 mL/min (>60); Globulin 3.4 g/dL (2.2-4.2); Glucose 87 mg/dL (74-106); PSA,Total- Diagnostic 3.53 ng/mL (0.0-4.0); Potassium 4.2 mmol/L (3.5-5.1); Protein, Total 7.5 g/dL (6.4-8.2); Sodium Level 135 mmol/L (136-145)
[2022-05-17 15:35] LABS: Microalbumin,Random Urine 55.2 mg/L (NO RANGE EST.); Microalbumin:Creatinine Ratio 388.7 mg/g CRE (<30 mg/g CRE); Urine Sodium 66 mmol/L (Not Establ.)
[2022-05-17 15:37] LABS: Osmolality, Serum 287 mOsm/KG (280-301); Osmolality, Urine 249 mOsm/KG
== END | disposition home or self-care (01) ==
LOC: MFPLAB 12:11
PROVIDERS: PCP Family Medicine; Referring Provider Family Medicine; Visit Provider Family Medicine
DX: I10 Essential (primary) hypertension (principal); E87.1 Hypo-osmolality and hyponatremia; N40.0 Benign prostatic hyperplasia without lower urinary tract symptoms
CPT/HCPCS: 36415; 80053; 82043; 82570; 83930; 83935; 84153; 84300; 85027

== ENCOUNTER → 2022-11-15 | Outpatient (CLI) | payer MEDICARE, OTHER, SELFPAY ==
[2022-11-15 10:50] LABS: Mucous, Urine 0 SEEN /hpf (<or=2+); Red Blood Cells-Urine 0 SEEN /hpf (0-5)
[2022-11-15 12:07] LABS: Absolute Lymphocyte Count 2.37 X10^3/uL (0.83-4.51); Absolute Neutrophil Count 6.6 X10^3/uL (2.0-7.7); Basophil# 0.05 X10^3/uL; Basophil% 0.5 % (0-1); Eosinophil# 0.17 X10^3/uL; Eosinophils% 1.7 % (0-5); Hematocrit 48.9 % (40-54); Hemoglobin 16.7 g/dL (13.0-16.5); Lymphocyte # 2.37 X10^3/ul (0.83-4.51); Lymphocyte % 23.3 % (19-41); Mean Corp Hgb Conc 34.2 g/dL (32-36); Mean Corpuscular Hgb 31.4 pg (27.0-32.0); Mean Corpuscular Volume 91.9 fL (80-94); Mean Platelet Vol. 11.2 fl (6.2-12.0); Monocyte# 0.89 X10^3/uL; Monocyte% 8.8 % (0-10); NRBC Flagged by Analyzer 0 % (0-5); Neutrophil % 64.9 % (47-70); Platelet Count 211 K/mm3 (150-450); RBC Distribution Width CV 13.1 % (11.6-14.6); RBC Distribution Width SD 44.2 fl (35.1-43.9); Red Blood Count 5.32 M/mm3 (4.6-6.2); White Blood Count 10.2 K/mm3 (4.4-11.0)
[2022-11-15 12:14] LABS: Color, Urine Yellow (Yellow); Glucose, Dipstick Normal (Normal); Ketone-Dipstick Negative (Negative); Leukocyte Esterase-Dipstick 25 /ul (Negative); Nitrite-Dipstick Negative (Negative); Occult Blood-Urine Negative /ul (Negative); Protein-Dipstick Negative (Negative); Urine Bilirubin Dipstick Negative (Negative); Urine Clarity Clear (Clear); Urine Urobilinogen Normal (Normal)
[2022-11-15 12:23] LABS: Hemoglobin A1c 5.8 % (3.8-5.6)
[2022-11-15 12:25] LABS: Bacteria RARE /hpf (None Seen); Squamous Epithelial Cells - UA 0-5 SEEN /hpf (0-5); White Blood Cells 0-5 SEEN /hpf (0-5)
[2022-11-15 12:40] LABS: Microalbumin,Random Urine 14.8 mg/L (NO RANGE EST.); Microalbumin:Creatinine Ratio 50.9 mg/g CRE (<30 mg/g CRE)
[2022-11-15 12:53] LABS: ALB/GLOB Ratio 1.2 RATIO (0.9-2.4); AST(SGOT) 26 U/L (15-37); Alanine Aminotransfer ALT/SGPT 45 U/L (16-61); Alkaline Phosphatase 54 U/L (45-117); Anion Gap 2 (5-15); BUN 11 mg/dL (7-18); BUN/Creat Ratio 14.7 RATIO (10-20); Calcium,Total 9.2 mg/dL (8.5-10.1); Chloride 101 mmol/L (98-107); Creatinine, Serum 0.75 mg/dL (0.70-1.30); EST Glomerular Filtration Rate 108 mL/min (>60); Est Glom Filt Rate - Afr Amer 131 mL/min (>60); Globulin 3.2 g/dL (2.2-4.2); Glucose 107 mg/dL (74-106); PSA,Total - Annual Screen 2.96 ng/mL (0.00-4.00); Potassium 4.1 mmol/L (3.5-5.1); Protein, Total 7.2 g/dL (6.4-8.2); Sodium Level 131 mmol/L (136-145)
== END | disposition home or self-care (01) ==
LOC: MFPLAB 10:48
PROVIDERS: PCP Family Medicine; Visit Provider Family Medicine
DX: R35.89 Other polyuria (principal); E88.81 Metabolic syndrome and other insulin resistance; R80.9 Proteinuria, unspecified; Z12.5 Encounter for screening for malignant neoplasm of prostate
CPT/HCPCS: 36415; 80053; 81001; 82043; 82570; 83036; 84153; 85025; 87086; 87088; G0103

== ENCOUNTER → 2023-09-25 | Outpatient (CLI) | payer MEDICARE, OTHER, SELFPAY ==
[2023-09-25 16:43] LABS: ALB/GLOB Ratio 1.4 RATIO (0.9-2.4); AST(SGOT) 29 U/L (15-37); Alanine Aminotransfer ALT/SGPT 40 U/L (16-61); Albumin, Serum 4.2 g/dL (3.2-5.0); Alkaline Phosphatase 53 U/L (45-117); Anion Gap 5 (5-15); BUN 12 mg/dL (7-18); BUN/Creat Ratio 15.1 RATIO (10-20); Calcium,Total 9.1 mg/dL (8.5-10.1); Chloride 101 mmol/L (98-107); Cholesterol 110 mg/dL (200); EST Glomerular Filtration Rate 100 mL/min (>60); Est Glom Filt Rate - Afr Amer 121 mL/min (>60); Globulin 3.1 g/dL (2.2-4.2); Glucose 94 mg/dL (74-106); High Density Lipoprotein 45 mg/dL; PSA,Total- Diagnostic 3.16 ng/mL (0.0-4.0); Potassium 4.1 mmol/L (3.5-5.1); Protein, Total 7.3 g/dL (6.4-8.2); Sodium Level 134 mmol/L (136-145); Triglycerides 128 mg/dL; Very Low Density Lipoprotein 26 mg/dL (5-40)
[2023-09-25 18:30] LABS: Osmolality, Serum 289 mOsm/KG (280-301)
== END | disposition home or self-care (01) ==
LOC: MFPLAB 11:53
PROVIDERS: PCP Family Medicine; Visit Provider Family Medicine
DX: E87.1 Hypo-osmolality and hyponatremia (principal); I63.9 Cerebral infarction, unspecified; E78.1 Pure hyperglyceridemia; N32.81 Overactive bladder; N40.0 Benign prostatic hyperplasia without lower urinary tract symptoms
CPT/HCPCS: 36415; 80053; 80061; 83930; 84153

== ENCOUNTER → 2024-03-04 | Outpatient (CLI) | payer MEDICARE, OTHER, SELFPAY ==
[2024-03-04 14:58] LABS: Anion Gap 6 (5-15); BUN 17 mg/dL (7-18); BUN/Creat Ratio 21.6 RATIO (10-20); Calcium,Total 9.4 mg/dL (8.5-10.1); Chloride 99 mmol/L (98-107); Creatinine, Serum 0.79 mg/dL (0.70-1.30); EST Glomerular Filtration Rate 102 mL/min (>60); Est Glom Filt Rate - Afr Amer 123 mL/min (>60); Glucose 81 mg/dL (74-106); Potassium 4.3 mmol/L (3.5-5.1); Sodium Level 132 mmol/L (136-145)
[2024-03-04 15:16] LABS: Microalbumin,Random Urine 13.3 mg/L (NO RANGE EST.); Microalbumin:Creatinine Ratio 36.6 mg/g CRE (<30 mg/g CRE)
== END | disposition home or self-care (01) ==
LOC: MFPLAB 12:09
PROVIDERS: PCP Family Medicine; Visit Provider Family Medicine
DX: I10 Essential (primary) hypertension (principal)
CPT/HCPCS: 36415; 80048; 82043; 82570

== ENCOUNTER → 2024-07-15 | Outpatient (CLI) | payer MEDICARE, OTHER, SELFPAY ==
--- NOTE | 2024-07-15 16:18 | US_ITS ---
STUDY: RENAL ULTRASOUND - COMPLETE REASON FOR EXAM: Male, 78 years old. polyuria TECHNIQUE: Ultrasound evaluation of the kidneys was performed with real-time and static perry-scale imaging. COMPARISON: None. FINDINGS: RIGHT KIDNEY: Normal location of the right kidney, which is normal in size. The right kidney measures 12.4 x 4.8 x 4.8 cm. There is a normal cortex of the right kidney. The renal cortex measures 1.7 cm. There is a solid 2.6 centimeter lesion. There are no right renal calculi. There is no right hydronephrosis. DISTAL RIGHT URETER: There is non-visualization of the distal right ureter. There is no demonstrated right ureterovesical junction calculus. There is a visualized right ureteral jet. LEFT KIDNEY: Normal location of the left kidney, which is normal in size. The left kidney measures 13.1 x 5.4 x 5 point cm. There is a normal cortex of the left kidney. The renal cortex measures 2.0 cm. There is a simple 2.9 cm cyst. There are no left renal calculi. There is no left hydronephrosis. DISTAL LEFT URETER: There is non-visualization of the distal left ureter. There is no demonstrated left ureterovesical junction calculus. There is a visualized left ureteral jet. AORTA: There is no elongation or tortuosity of the abdominal aorta. I.V.C.: The IVC is patent. BLADDER: The bladder distends normally without wall thickening, there is abnormally large postvoid residual suggesting bladder outlet issues, likely due to prostate this places the patient at risk for ureteral reflux and UTIs US/Kidney and Bladder IMPRESSION: No obstructive uropathy. However, there is a 2.6 cm solid lesion in the right kidney which needs further evaluation with contrasted CT or MRI. Urologic consultation recommended Simple left renal cyst, no specific follow-up needed Abnormally large post void residual places the patient at risk for reflux and UTIs Electronically Signed: Salvador Lake MD at 8:52 EST ,
== END | disposition home or self-care (01) ==
LOC: US 16:12
PROVIDERS: PCP Family Medicine; Referring Provider Family Medicine; Visit Provider Family Medicine
DX: N32.81 Overactive bladder (principal)
CPT/HCPCS: 76770

== ENCOUNTER → 2024-08-20 | Outpatient (CLI) | payer MEDICARE, OTHER, SELFPAY ==
--- NOTE | 2024-08-20 16:15 | MRI_ITS ---
MRI Abdomen w/ and w/out contrast 08/20/2024 4:43 PM COMPARISON: US 07/15/2024 CLINICAL HISTORY: Mass on right kidney TECHNIQUE: Multiplanar T1 and T2 weighted, diffusion and dynamic post-gadolinium images were obtained through the abdomen before and after administration of 17 cc of IV Clariscan. FINDINGS: Liver: Unremarkable Gallbladder: There is gallbladder sludge. Pancreas: Unremarkable Spleen: Unremarkable Adrenal Glands: Unremarkable Kidneys: There is a 2 x 1.9 cm T1 hypointense/T2 hyperintense lesion in the right lower renal pole with questionable heterogeneous enhancement. Multiple nonenhancing T2 bright simple cysts throughout both kidneys. GI Tract: Unremarkable Lymphadenopathy: Absent Ascites: Absent Bones: No suspicious lesions MRI/MRI Abd WITH and W/O Contrast IMPRESSION: Very limited examination due to heavy motion artifact on several sequences. Despite limitations: 2 cm T2 hyperintense lesion in the right lower renal pole with questionable heterogeneous enhancement. This is concerning for possible renal cell carcinoma. Electronically Signed: Krish Caputo MD at 21:25 EST ,
== END | disposition home or self-care (01) ==
LOC: MRI 16:10
PROVIDERS: PCP Family Medicine; Referring Provider Family Medicine; Visit Provider Family Medicine
DX: N28.89 Other specified disorders of kidney and ureter (principal)
CPT/HCPCS: 74183; A9575

== ENCOUNTER → 2024-11-12 | Outpatient (CLI) | payer MEDICARE, OTHER, SELFPAY ==
[2024-11-12 12:35] LABS: Absolute Lymphocyte Count 2.03 X10^3/uL (0.83-4.51); Absolute Neutrophil Count 6.9 X10^3/uL (2.0-7.7); Basophil# 0.06 X10^3/uL; Basophil% 0.6 % (0-1); Eosinophil# 0.11 X10^3/uL; Eosinophils% 1.1 % (0-5); Hematocrit 45.5 % (40-54); Lymphocyte # 2.03 X10^3/ul (0.83-4.51); Lymphocyte % 20.2 % (19-41); Mean Corp Hgb Conc 35.2 g/dL (32-36); Mean Corpuscular Hgb 31.8 pg (27.0-32.0); Mean Corpuscular Volume 90.5 fL (80-94); Mean Platelet Vol. 10.7 fl (6.2-12.0); Monocyte# 0.86 X10^3/uL; Monocyte% 8.5 % (0-10); NRBC Flagged by Analyzer 0 % (0-5); Neutrophil # 6.93 X10^3/uL (2.7-7.7); Neutrophil % 68.9 % (47-70); Platelet Count 203 K/mm3 (150-450); RBC Distribution Width CV 12.8 % (11.6-14.6); RBC Distribution Width SD 42.5 fl (35.1-43.9); Red Blood Count 5.03 M/mm3 (4.6-6.2); White Blood Count 10.1 K/mm3 (4.4-11.0)
[2024-11-12 13:11] LABS: Microalbumin,Random Urine 15.5 mg/L (NO RANGE EST.); Microalbumin:Creatinine Ratio 498.4 mg/g CRE
[2024-11-12 13:29] LABS: ALB/GLOB Ratio 1.9 RATIO (0.9-2.4); AST(SGOT) 25 U/L (<=37); Alanine Aminotransfer ALT/SGPT 23 U/L (<=46); Albumin, Serum 4.5 g/dL (3.4-4.8); Alkaline Phosphatase 45 U/L (40-129); Anion Gap 11 (5-15); BUN 14 mg/dL (4-19); BUN/Creat Ratio 18.1 RATIO (10-20); Calcium,Total 9.4 mg/dL (7.6-11.0); Carbon Dioxide 25.1 mmol/L (21.0-32.0); Chloride 98 mmol/L (98-108); Creatinine, Serum 0.78 mg/dL (0.70-1.20); EST Glomerular Filtration Rate 91 (>60); Globulin 2.4 g/dL (2.2-4.2); Glucose 110 mg/dL (70-99); Potassium 4.2 mmol/L (3.3-5.1); Protein, Total 6.9 g/dL (5.9-8.4); Sodium Level 134 mmol/L (133-145); Total Bilirubin 0.51 mg/dL (0.00-1.30)
[2024-11-12 13:37] LABS: Hemoglobin A1c 6.2 % (<=5.6)
== END | disposition home or self-care (01) ==
LOC: MFPLAB 11:19
PROVIDERS: PCP Family Medicine; Referring Provider Family Medicine; Visit Provider Family Medicine
DX: E88.810 Metabolic syndrome (principal); I10 Essential (primary) hypertension; Z86.73 Personal history of transient ischemic attack (TIA), and cerebral infarction without residual deficits
CPT/HCPCS: 36415; 80053; 82043; 82570; 83036; 85025

== ENCOUNTER → 2025-02-24 | Outpatient (CLI) | payer MEDICARE, OTHER, SELFPAY ==
--- NOTE | 2025-02-24 13:43 | CT_ITS ---
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 CONTRAST: Isovue-300 VOLUME: 100 mL One or more dose reduction techniques were used (e.g., Automated exposure control, adjustment of the mA and/or kV according to patient size, use of iterative reconstruction technique. RADIATION DOSE SUMMARY: CTDlvol: 15 mGy DLP: 1756.33 mGycm COMPARISON: Prior MRI of the abdomen dated August 20, 2024. FINDINGS: Lung bases: Lung bases are clear. Liver: Several tiny subcentimeter hypodense nodules seen scattered throughout the liver. These most likely represent cysts although correlation with ultrasound recommended. Fatty infiltration of the liver. Gallbladder: Unremarkable Spleen: Normal size. Pancreas: Normal size without evidence of mass surrounding inflammation or ductal dilation. Adrenals: Hyperplasia of the left adrenal gland. Kidneys: There is a 1.4 cm by 1.7 cm hypodense nodule in the inferior lateral aspect of the right kidney. This is not a typical cyst. A neoplastic process should be ruled out. There is a 2.4 cm cyst in the lower pole of the left kidney. Bladder: Unremarkable. Heterogeneous enlargement of the prostate with indentation of the bladder base. Bowel: Unremarkable Appendix: The appendix is not identified. There is no inflammatory process identified in the right lower quadrant to suggest appendicitis. Lymph nodes: Unremarkable. Vasculature: Mild diffuse atherosclerotic calcifications are noted. Peritoneum / Retroperitoneum: Unremarkable Bones: Degenerative changes of the spine. CT/CT Abd/Pelvis W/WO Contrast IMPRESSION: 1.4 cm 1.7 cm hypodense nodule in the inferior lateral aspect of the right kidn ey suggestive of possible neoplastic lesion. Several tiny subcentimeter hypodense nodules seen scattered throughout the live r. These most likely represent small cysts. Reading Location: [facility]
[2025-02-24 14:23] LABS: CREATININE FINGERSTICK < 1.0 mg/dL (0.70-1.30); EGFR FINGERSTICK > 60.0000 mL/min (>60)
== END | disposition home or self-care (01) ==
LOC: CT 13:39
PROVIDERS: PCP Family Medicine; Referring Provider Urology; Visit Provider Urology
DX: D41.01 Neoplasm of uncertain behavior of right kidney (principal)
CPT/HCPCS: 74178; Q9967

== ENCOUNTER → 2025-06-13 | Outpatient (CLI) | payer MEDICARE, OTHER, SELFPAY ==
[2025-06-13 13:08] LABS: PSA,Total - Annual Screen 2.90 ng/mL (0.02-4.00)
== END | disposition home or self-care (01) ==
PROVIDERS: PCP Family Medicine
DX: Z12.5 Encounter for screening for malignant neoplasm of prostate (principal)
CPT/HCPCS: 36415; 84153; G0103